=== PATIENT | female | born 1955 | race Caucasian/White ===

== ENCOUNTER 2021-12-14 11:10 | Outpatient (REF) | payer BC, SELFPAY ==
--- NOTE | ~2021-12-14 | MM_ITS ---
EXAMINATION: BONE DENSITOMETRY CLINICAL INDICATION: Asymptomatic menopausal state. COMPARISON: Baseline BD dated 11/18/2018. TECHNIQUE: Using a [employer] DXA System (software version: 13.1) manufactured by [employer], dual-energy x-ray absorptiometry was performed of the lumbar spine and left hip. The images are of good technical quality. Summary results are attached. FINDINGS: AP SPINE L1-L4: Current: BMD 0.897 g/cm2, Z-score -0.2, T-score -2.4, osteopenia, 8.3% decrease from baseline (<5% change is not significant). Baseline: BMD 0.978 g/cm2. LEFT FEMUR, NECK: Current: BMD 0.819 g/cm2, Z-score 0.4, T-score -1.6, osteopenia. Baseline: BMD 0.860 g/cm2. LEFT FEMUR, TOTAL: Current: BMD 0.782 g/cm2, Z-score 0.0, T-score -1.8, osteopenia, 9.0% decrease from baseline (<5% change is not significant). Baseline: BMD 0.859 g/cm2. IDENTIFIED RISK FACTORS: Menopause. HISTORY OF FRACTURE: None listed. MEDICATIONS: Vitamin D. MM/XR DEXA axial skeleton IMPRESSION: 1. DIAGNOSIS: Osteopenia based on the lowest T-score value of -2.4 in the lumbar spine applying World Health Organization criteria. 2. 10-YEAR FRACTURE RISK PREDICTION, FRAX: Major osteoporotic fracture (clinical spine, forearm, hip or shoulder) 8.4%. Hip fracture 1.3%. 3. Treatment Recommendations: NOF guidelines recommend consideration for treatment in postmenopausal women and men age 50 and older presenting with the following: -A hip or vertebral (clinical or morphometric) fracture. -T-score less than or equal to -2.5 at the femoral neck or spine after appropriate evaluation to exclude secondary causes. -Low bone mass at the hip or spine and a 10-year fracture probability by FRAX of greater than or equal to 3% for hip fracture or greater than or equal to 20% for major osteoporotic fracture based on the [place] adapted WHO algorithm. 4. Other Recommendations: All treatment decisions require clinical judgment and consideration of individual patient factors, including patient preferences, comorbidities, previous drug use, risk factors not captured in the FRAX model (e.g. frailty, falls, vitamin D deficiency, increased bone turnover, interval significant decline in bone density) and possible under or overestimation of fracture risk by FRAX. Additional medical evaluation for secondary cause of low bone mineral density may be appropriate. FUTURE SCAN RECOMMENDATION: People with diagnosed cases of osteoporosis or at high risk for fracture should have regular bone mineral density tests. For patients eligible for Medicare, routine testing is allowed once every 2 years. The testing frequency can be increased to one year for patients who have rapidly progressing disease, those who are receiving or discontinuing medical therapy to restore bone mass, or have additional risk factors.
== END 2021-12-14 11:11 | disposition home or self-care (01) ==
LOC: HO.MAMMO 11:10
PROVIDERS: PCP Internal Medicine; Visit Provider Internal Medicine
DX: Z13.820 Encounter for screening for osteoporosis (principal); M85.80 Other specified disorders of bone density and structure, unspecified site; Z78.0 Asymptomatic menopausal state; Z79.899 Other long term (current) drug therapy
CPT/HCPCS: 77080

== ENCOUNTER 2022-04-01 10:26 | Outpatient (REF) | payer BC, SELFPAY ==
--- NOTE | ~2022-04-01 | MM_ITS ---
EXAMINATION: MM SCREENING DIGITAL BREAST TOMOSYNTHESIS, BILATERAL CLINICAL INFORMATION: Screening. Asymptomatic. The lifetime risk of breast cancer based on the Tyrer-Cuzick Model is 4%. COMPARISON: Mammography: 11/18/2018; outside mammography 01/06/2017 ([facility]). TECHNIQUE: Digital breast tomosynthesis is performed in both the craniocaudal and mediolateral oblique views along with computer-aided detection (CAD). Synthesized 2D images are generated from the tomosynthesis. FINDINGS: There are scattered areas of fibroglandular density (ACR BI-RADS breast composition Category b). There are no significant masses, abnormal calcifications, or other abnormalities. There are stable tightly grouped benign round calcifications likely dermal 8:00 left breast. The axilla and skin contours are unremarkable. MM/MM tomosynthesis screening BI IMPRESSION: No mammographic evidence of malignancy. ASSESSMENT: BI-RADS 2: Benign RECOMMENDATION: Routine annual mammography screening. This patient's information was entered into a reminder system with a target due date for their next mammogram.
[2022-04-01 12:26] LABS: Alanine Aminotransferase 14 U/L (0-31); Alkaline Phosphatase 80 U/L (39-117); Amylase 66 U/L (28-100); Anion Gap 11 (12-20); Aspartate Amino Transferase 14 U/L (5-31); Bilirubin Total 0.6 mg/dL (0.0-1.0); Blood Urea Nitrogen 8 mg/dL (9-16); Calcium 9.2 mg/dL (8.4-10.2); Carbon Dioxide 27 mmol/L (22-29); Chloride 105 mmol/L (96-108); Cholesterol 212 mg/dL; Estimated Glomerular Filt Rate > 60; Glucose Fasting 90 mg/dL (60-99); HDL Cholesterol 57 mg/dL; LDL Cholesterol Calculated 143 mg/dl; Lipase 41 U/L (8-78); Potassium 3.9 mmol/L (3.3-5.1); Sodium 139 mmol/L (135-145); Total Protein 6.1 g/dL (6.5-8.0); Triglycerides 63 mg/dL
[2022-04-01 12:46] LABS: Vitamin D 25-OH Total 26.2 ng/mL (>30)
[2022-04-01 12:50] LABS: Erythrocyte Sedimentation Rate 8 MM/HR (0-20)
== END 2022-04-01 10:27 | disposition home or self-care (01) ==
LOC: HO.MAMMO 10:26
PROVIDERS: PCP Internal Medicine; Visit Provider Internal Medicine
DX: Z00.00 Encounter for general adult medical examination without abnormal findings (principal); Z12.31 Encounter for screening mammogram for malignant neoplasm of breast; R10.9 Unspecified abdominal pain; E55.9 Vitamin D deficiency, unspecified; M85.80 Other specified disorders of bone density and structure, unspecified site
CPT/HCPCS: 36415; 77063; 77067; 80053; 80061; 82150; 82306; 83690; 85652; 86140

== ENCOUNTER 2023-05-15 10:37 | Outpatient (REF) | payer BC, SELFPAY ==
--- NOTE | ~2023-05-15 | MM_ITS ---
EXAMINATION: MM SCREENING DIGITAL BREAST TOMOSYNTHESIS, BILATERAL CLINICAL INFORMATION: Screening. Asymptomatic. The lifetime risk of breast cancer based on the Tyrer-Cuzick Model is 4.9%. COMPARISON: Mammography: This study is compared with prior exams dating back to 2017. TECHNIQUE: Digital breast tomosynthesis is performed in both the craniocaudal and mediolateral oblique views along with computer-aided detection (CAD). Synthesized 2D images are generated from the tomosynthesis. FINDINGS: There are scattered areas of fibroglandular density (ACR BI-RADS breast composition Category b). There are no significant masses, abnormal calcifications, or other abnormalities. MM/MM tomosynthesis screening BI IMPRESSION: No mammographic evidence of malignancy. ASSESSMENT: BI-RADS BI-RADS 1 - Negative RECOMMENDATION: Routine annual mammography screening. 1 year F/U This examination should not preclude the clinical evaluation of a suspicious palpable abnormality. This patient's information was entered into a reminder system with a target due date for their next mammogram.
[2023-05-19 12:52] LABS: Immunoglobulin A 141 mg/dL (70-320)
[2023-05-20 14:28] LABS: Endomysial IgA Antibody Negative (Negative)
[2023-05-21 05:43] LABS: Transglutaminase Ab IgG <1.0 U/mL
== END 2023-05-15 10:38 | disposition home or self-care (01) ==
LOC: HO.MAMMO 10:37
PROVIDERS: PCP Internal Medicine; Visit Provider Internal Medicine
DX: Z00.00 Encounter for general adult medical examination without abnormal findings (principal); Z12.31 Encounter for screening mammogram for malignant neoplasm of breast; R10.9 Unspecified abdominal pain; D64.9 Anemia, unspecified; E55.9 Vitamin D deficiency, unspecified; E78.5 Hyperlipidemia, unspecified
CPT/HCPCS: 36415; 77063; 77067; 80053; 80061; 82306; 82784; 85025; 86231; 86364

== ENCOUNTER → 2023-05-15 11:30 | Outpatient (BNV) | payer BC, SELFPAY | PROVIDERS: PCP Internal Medicine; Visit Provider Radiology Diagnostic Radiology | DX: Z12.31 Encounter for screening mammogram for malignant neoplasm of breast (principal) | CPT/HCPCS: 77063; 77067 ==

== ENCOUNTER 2023-05-29 15:50 | Outpatient (REF) | payer BC, SELFPAY ==
[2023-05-29 17:37] LABS: Iron 61 mcg/dL (30-160); Percent Iron Saturation 21 % (15-50); Total Iron Binding Capacity 295 mcg/dL (228-428); Unsaturated Iron Binding 234 ug/dL
[2023-05-29 17:56] LABS: Erythrocyte Sedimentation Rate 7 MM/HR (0-20)
[2023-06-04 12:34] LABS: CRP High Sensitivity 1.5 mg/L
== END 2023-05-29 15:51 | disposition home or self-care (01) ==
LOC: HO.LAB 15:50
PROVIDERS: PCP Internal Medicine; Visit Provider Internal Medicine
DX: D64.9 Anemia, unspecified (principal); R60.9 Edema, unspecified
CPT/HCPCS: 36415; 83540; 85652; 86141

== ENCOUNTER 2024-02-18 10:12 | Outpatient (AMB) | payer BC, SELFPAY ==
[2024-02-18 10:15] VITALS: BP 118/78; BMI 19.0
--- NOTE | 2024-02-18 10:15 | A.OFFPC_ITS ---
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 by: Self / Same As Patient Allergies No Known Allergies Allergy (Verified 02/18/24 10:30) Medication List - Last Reconciled 02/18/24 by Razia Bean MD bimatoprost 0.03% drps ophthalmic (eye) brinzolamide-brimonidine 1-0.2 % (Simbrinza) 1 drp ophthalmic (eye) TID cholecalciferol (vitamin D3) 25 mcg PO DAILY 90 days [compression stockings As directed] [compression stockings As directed] digestive enzymes 1 cap PO DAILY psyllium husk (Metamucil) 1 tbsp PO DAILY [transfer tub bench As directed] Tobacco use date assessed: 02/18/24 Fall risk assessment: No Falls in past year Last assessed Fall Risk: 02/18/24 Dental Screening Dental Screen Date: 02/18/24 Did you have a dental visit in the last 12 months?: Yes Did you have a dental problem in the last 6 months where you did not have access to dental care?: No Was dental information given to patient?: Patient has dentist HPI HPI Comments History of Present Illness Details This is a 69-year-old female that comes for her physical exam. Last mammogram was May 2023 and was normal. Last bone density was 2021 and this will be repeated. Last colonoscopy was November 2022 showing polyps and next colonoscopy should be 2027. Complains of occasional chest pain on exertion and shortness of breath when climbing stairs. No leg swelling. No change in weight. [facility] Medical History Venous insufficiency Abdominal pain Screen for colon cancer Physical exam Osteopenia Postmenopausal Hip pain, right Leg edema Surgical History Status post hip replacement Family History Mother Vascular dementia Glaucoma Father Pancreatic cancer Social History Housing: House Alcohol intake: current Alcohol intake frequency: holidays/special occasions only Alcohol type: wine Patient Tobacco Use Status: Never used Tobacco e-Cigarette/Vaping Use: Never Used Second Hand Smoke Exposure: No service: No Current occupational status: retired Cognitive needs: No Hearing needs: No Vision needs: Yes Questionnaire PHQ-9 Over the last 2 weeks, how often have you been bothered by any of the following problems? 1. Little interest or pleasure in doing things: not at all 2. Feeling down, depressed, or hopeless: not at all 3. Trouble falling or staying asleep, or sleeping too much: not at all 4. Feeling tired or having little energy: not at all 5. Poor appetite or overeating: not at all 6. Feeling bad about yourself - or that you are a failure or have let yourself or your family down: not at all 7. Trouble concentrating on things, such as reading the newspaper or watching television: not at all 8. Moving or speaking so slowly that other people could have noticed. Or the opposite - being so fidgety or restless that you have been moving around a lot more than usual: not at all 9. Thoughts that you would be better off or of hurting yourself in some way: not at all Total score: 0 Depression Screening Interpretation: Negative Depression Screening Done: Yes 63245 - PHQ-9 Billing: Yes Source: Developed by Drs. Arnold Smith, Vicky Barrios, Prieto Melgoza and colleagues, with an educational jonathon from [employer]. Thrive Questionnaire Date Thrive assessed: 02/18/24 I am a: Patient What is your living situation today?: I have a steady place to live Within the past 12 months, did the food you bought not last and you didn't have the money to get more?: Never true Within the past 12 months, did you worry whether your food would run out before you got money to buy more?: Never true Do you have trouble paying for medicines?: No Do you have trouble getting transportation to medical appointments?: No Do you have trouble paying your heating and electricity bill?: No Do you have trouble taking care of your child, family member or friend?: No Do you have trouble with day-to-day activities such as bathing, preparing meals, shopping, managing finances, etc.?: No Are you currently unemployed and looking for a job?: No Are you interested in more education?: No Please select the resources that you would like help with: None Currently or been in a relationship where the following occur: no concerns reported THRIVE Score: 0 AUDIT C Alcohol Use Questionnaire (AUDIT-C) 1. How often do you have a drink containing alcohol?: Monthly or less 2. How many drinks containing alcohol do you have on a typical day when you are drinking?: 1 or 2 3. How often do you have six or more drinks on one occasion?: Never Total Score: 1 VINH-7 AMB Questionnaire VINH-7 Date VINH - 7 assessed: 02/18/24 Feeling nervous, anxious, or on edge: 0 = Not at all Not being able to stop or control worryin = Not at all Worrying too much about different things: 0 = Not at all Trouble relaxin = Not at all Being so restless that it is hard to sit still: 0 = Not at all Becoming easily annoyed or irritable: 0 = Not at all Feeling afraid as if something awful might happen: 0 = Not at all Total VINH-7 score (0-4 normal; 5-9 mild; 10-14 moderate; 15-21 severe): 0 Source: Developed by Drs. Arnold Smith, Vicky Barrios, Prieto Melgoza and colleagues, with an educational jonathon from [employer]. VINH-7 Assessment Billing VINH-7 Assessment Tool: VINH-7 Assessment 59993 Review of Systems Const All systems reviewed & are unremarkable except as noted in HPI and below Eyes Reports no additional complaints, Denies change in vision and Denies other visual disturbances Card Denies chest pain at rest, Reports chest pain with activity, Denies edema, Denies irregular heart rhythm, Denies claudication, Denies dyspnea, Reports dyspnea on exertion, Denies orthopnea, Denies paroxysmal nocturnal dyspnea and Denies slow heart rate Resp Denies cough, Denies dyspnea and Reports dyspnea on exertion GI Denies abdominal pain, Denies change in bowel habits, Denies excessive flatus, Denies nausea and Denies vomiting Neuro Denies behavioral changes, Denies confusion and Denies lack of coordination Psych Denies behavioral changes and Denies confusion Physical exam (Primary Care) Vital Signs: Last Vital Signs BP 118/78 02/18/24 10:15 BMI result Body Mass Index 19.0 Tobacco/Smoking Status: Tobacco use Status Tobacco use date assessed 02/18/24 02/18/24 10:23 Patient Tobacco Use Status Never used Tobacco 02/18/24 10:23 e-Cigarette/Vaping Use Never Used 02/18/24 10:23 PHQ-9: PHQ-9 Score PHQ-9: Total score 0 02/18/24 10:35 Depression Screening Interpretation: Negative Thrive Assessment: Date of Thrive Assessment Date Thrive assessed 02/18/24 02/18/24 10:23 Currently or been in a relationship where the following occur: no concerns reported Const General: No confusion Orientation/consciousness: patient oriented x3 and No confusion Eyes General: appearance normal, both eyes and all related structures Eyelids: Yes eyelids normal Conjunctivae: conjunctivae normal Neck Neck: Yes normal visual inspection and Yes supple Resp Effort & Inspection: normal respiratory effort Auscultation: clear to auscultation bilaterally Cardio Jugular venous distension: no JVD Rate: regular rate Rhythm: regular rhythm Heart sounds: S1 normal heart sound present and S2 normal heart sound present GI Inspection: Yes normal to inspection Palpation (GI): Soft to palpation and nontender Auscultation: normal bowel sounds Skin General skin exam: no rashes or lesions noted Neuro General: patient oriented x3, no focal motor deficits and No confusion Extrem General: Yes full ROM Psych Appearance: grossly normal Assessment and Plan Assessment & Plan (1) Physical exam: Code(s): Z00.00 - Encounter for general adult medical examination without abnormal findings Plan: Repeat in a year. Orders: Orders Comprehensive Warden. Panel Fast Today Z00.00 - Encounter for general adult medical examination without abnormal findings ECG 12 lead EKG Today R07.9 - Chest pain, unspecified CA echo transthoracic complete Today R01.1 - Cardiac murmur, unspecified XR DEXA axial skeleton Today N95.9 - Unspecified menopausal and perimenopausal disorder Lipid Panel Today Z00.00 - Encounter for general adult medical examination without abnormal findings Complete Blood Count Auto Diff Today R10.9 - Unspecified abdominal pain Coding Level of Care Code Est Pt Prev Care >65y(08342) Diagnoses Physical exam Z00.00 Additional Codes VINH-7 Assessment Billing - VINH-7 Assessment Tool: VINH-7 Assessment [id number] ([id number]) Time Spent (min) 33
== END 2024-02-18 10:52 | disposition home or self-care (01) ==
PROVIDERS: Visit Provider Internal Medicine
DX: Z00.00 Encounter for general adult medical examination without abnormal findings (principal)
CPT/HCPCS: 99397

== ENCOUNTER 2024-02-18 11:00 | Outpatient (REF) | payer BC, SELFPAY ==
--- NOTE | 2024-02-18 11:08 | ECG_ITS ---
Test Reason : chest pain Blood Pressure : / mmHG Vent. Rate : 052 BPM Atrial Rate : 052 BPM P-R Int : 222 ms QRS Dur : 082 ms QT Int : 476 ms P-R-T Axes : 068 032 070 degrees QTc Int : 442 ms Sinus bradycardia with 1st degree A-V block Possible Left atrial enlargement Anteroseptal infarct , age undetermined Abnormal ECG No previous ECGs available Referred By: aRzia Bean Electronically Signed By:Abhishek Montoya
[2024-02-18 11:25] LABS: MANUAL DIFF FLAG NO
[2024-02-18 12:49] LABS: Basophils Absolute Auto 0.1 X10*3/uL (0.0-0.2); Basophils Percent Auto 1.7 % (0-2); Eosinophils Absolute Auto 0.1 X10*3/uL (0.0-0.4); Eosinophils Percent Auto 2.2 % (0-4); Hematocrit 39.9 % (37.0-47.0); Hemoglobin 12.8 g/dl (12.0-16.0); Imm Gran Abs Auto 0.01 X10*3/uL (0.00-0.03); Imm Gran Pct Auto 0.2 % (0.0-0.4); Lymphocytes Absolute Auto 1.5 X10*3/uL (1.2-4.9); Lymphocytes Percent Auto 37.3 % (20-40); Mean Corpuscular HGB Conc 32.1 g/dl (31.0-35.0); Mean Corpuscular Hemoglobin 28.9 pg (27.0-33.0); Mean Corpuscular Volume 90.1 fL (80.0-98.0); Mean Platelet Volume 12.8 fL (9.4-12.3); Monocytes Absolute Auto 0.4 X10*3/uL (0.1-1.2); Monocytes Percent Auto 9.1 % (2-11); Neutrophils Percent Auto 49.5 % (45-73); Platelet Count 161 X10*3/uL (160-400); Red Blood Count 4.43 X10*6/uL (4.20-5.50); Red Cell Distribution Width 13.5 % (11.0-16.0); White Blood Count 4.1 X10*3/uL (4.8-10.8)
[2024-02-18 13:25] LABS: Alanine Aminotransferase 15 U/L (0-31); Albumin Level 4.2 g/dL (3.5-5.0); Alkaline Phosphatase 88 U/L (39-117); Anion Gap 13 (12-20); Aspartate Amino Transferase 18 U/L (5-31); Bilirubin Total 0.9 mg/dL (0.0-1.0); Blood Urea Nitrogen 8 mg/dL (9-16); Calcium 9.1 mg/dL (8.4-10.2); Carbon Dioxide 27 mmol/L (22-29); Chloride 103 mmol/L (96-108); Cholesterol 215 mg/dL (<200); Estimated Glomerular Filt Rate > 60; Glucose Fasting 82 mg/dL (60-99); HDL Cholesterol 64 mg/dL (>40); LDL Cholesterol Calculated 139 mg/dL (<100); Potassium 3.6 mmol/L (3.3-5.1); Sodium 139 mmol/L (135-145); Total Protein 6.7 g/dL (6.5-8.0); Triglycerides 62 mg/dL (<150)
== END 2024-02-18 11:01 | disposition home or self-care (01) ==
LOC: HO.LAB 11:00
PROVIDERS: Visit Provider Internal Medicine
DX: Z00.00 Encounter for general adult medical examination without abnormal findings (principal); R10.9 Unspecified abdominal pain; R07.9 Chest pain, unspecified
CPT/HCPCS: 36415; 80053; 80061; 85025; 93005

== ENCOUNTER → 2024-02-18 11:08 | Outpatient (BNV) | payer BC, SELFPAY | PROVIDERS: Visit Provider Internal Medicine Cardiovascular Disease | DX: R94.31 Abnormal electrocardiogram [ECG] [EKG] (principal) | CPT/HCPCS: 93010 ==

== ENCOUNTER → 2024-03-03 08:13 | Outpatient (REF) | payer BC, SELFPAY ==
--- NOTE | 2024-03-03 08:17 | CA_ITS ---
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 Normal LV systolic function with LV EF of 60-65% with grade 1 diastolic dysfunction 2. Trace aortic regurgitation 3. Normal RV systolic pressure 4. No gross pericardial effusion Findings Left Ventricle Normal left ventricular size, thickness, and systolic function. The visually estimated ejection fraction is between 60-65%. Spectral Doppler is indicative of an impaired relaxation filling pattern. E/E prime ratio is <8, consistent with normal filling pressures. Evidence suggests grade I (mild) diastolic dysfunction. Peak GLS is -19.5%, within normal limits. Right Ventricle Normal right ventricular cavity size and systolic function. Atria Both atria are normal in size. There is no evidence of interatrial shunt. Aortic Valve There is mild calcification of the aortic valve. There is mild thickening of the aortic valve. There is no aortic valve stenosis. There is trace (trivial) aortic valve regurgitation. Mitral Valve There is mild anterior mitral leaflet thickening. There is mild mitral annular calcification. There is trace mitral valve regurgitation. There is no mitral valve stenosis. Pulmonic Valve The pulmonic valve is likely normal. There is trace pulmonic valve regurgitation. Tricuspid Valve Normal tricuspid valve structure. There is mild tricuspid valve regurgitation. The right ventricular systolic pressure is normal. The right ventricular systolic pressure is 21 mmHg. Normal right atrial pressure. There is no evidence of pulmonary hypertension. Great Vessels All visible segments of the aorta are normal in size. The pulmonary artery was not well visualized. Venous The inferior vena cava is normal in size and collapses greater than 50% with inspiration. Pericardium/Pleural There is no evidence of pericardial effusion. Prior Study Comparison No prior study available for comparison. Measurements 2D Linear Measurements IVSd: 0.80 0.6-0.9/0.6-1.0 cm LVIDd: 3.73 3.9-5.3/4.2-5.9 cm LVIDd Index: 2.52 2.4-3.2/2.2-3.1 cm/m2 LVIDs: 2.43 2.0-3.6 cm LVPWd: 0.73 0.7-1.1 cm LA Diam: 3.00 2.7-3.8/3.0-4.0 cm LAIDs Index: 2.03 1.5-2.3 cm/m2 LV Mass: 97.12 67-162/88-224 g LV Mass Index: 65.62 43-95/49-115 g/m2 LVOT Diam: 2.00 3.0+(-)1.3 cm 2D Systolic Function EF 4C: 57.20 >55% EF 2C: 66.50 >55% EF BiP: 63.00 >55% Mitral Valve MV Pk E: 0.61 MV PK A: 0.62 MV Decel Time: 241.00 E/A: 1.00 E'Lateral: 8.16 E'Medial: 6.64 E/E' Med: 9.20 E/E' Lat: 7.50 PHT: 70.00 MVA PHT: 3.14 Decel [place]: 2.53 Aortic Valve AoV Pk Stephan: 1.16 AoV Mn Stephan: 0.86 AoV VTI: 0.26 AoV Pk Grad: 5.00 Aov Mn Grad: 3.00 TOM Cont.VTI: 2.51 LVOT LVOT Pk Stephan: 0.92 LVOT Mn Stephan: 0.63 LVOT VTI: 0.21 LVOT Pk Grad: 3.00 LVOT Mn Grad: 2.00 LVOT Diam: 2.00 LVOT Area: 3.14 Diastolic Function MV Pk E: 0.61 MV Pk A: 0.62 E/A: 1.00 E'Medial: 6.64 E/E' Med: 9.20 E' Laterial: 8.16 E/E' Lat: 7.50 Right Ventricle TAPSE (mm): 26.90 TVS' Stephan: 12.00 Tricuspid Valve TR Pk Stephan: 2.13 TR Pk Grad: 18.00 RA Press: 3.00 RVSP: 21.00 Great Vessels Aorta Sinus of Valsalva: 3.12 2.0-3.[address] [place]: 2.38 1.7-3.4 cm Ao Asc: 3.20 2.1-3.4 cm Updated in Other Vendor System with Status of Final Vincent Garcia MD electronically signed on 03/04/2024 4:11:55 PM with status of Final
== END ==
LOC: HO.CARD 08:13
PROVIDERS: Visit Provider Internal Medicine
DX: R01.1 Cardiac murmur, unspecified (principal)
CPT/HCPCS: 93306; 93356

== ENCOUNTER → 2024-03-03 08:17 | Outpatient (BNV) | payer BC, SELFPAY | PROVIDERS: Visit Provider Internal Medicine Cardiovascular Disease | DX: R01.1 Cardiac murmur, unspecified (principal) | CPT/HCPCS: 93306; 93356 ==

== ENCOUNTER 2024-04-21 08:38 | Outpatient (AMB) | payer BC, SELFPAY ==
--- NOTE | 2024-04-21 08:41 | A.OFFVIS_ITS ---
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 Intake Note: New patient Pre-op clearance for left total hip replacement with abnormal echo with ekg today c/o sob, little chest pain with activity, and some leg swelling Patient Resource Coordinator Required: No Allergies No Known Allergies Allergy (Verified 02/18/24 10:30) Medication List - Last Reconciled 04/21/24 by Vincent Garcia MD bimatoprost 0.03% drps ophthalmic (eye) brinzolamide-brimonidine 1-0.2 % (Simbrinza) 1 drp ophthalmic (eye) TID cholecalciferol (vitamin D3) 25 mcg PO DAILY 90 days [compression stockings As directed] [compression stockings As directed] [transfer tub bench As directed] HPI Comments Details: Rose was referred here for preoperative cardiovascular risk stratification prior to her left hip replacement in [place]. She had hip surgery done 2 years ago and tolerated the valve. Recently she had an echocardiogram for murmur but this was suggestive of trace aortic regurgitation which is significant and normal LV ejection fraction with grade 1 diastolic dysfunction. She is very concerned about this finding on the echocardiogram as she was told that this was abnormal. We discussed about the findings and told that these are not significant. However she is experiencing exertional shortness of breath climbing a flight of stairs. She is concerned about it. No family history for premature coronary artery disease but she says she has high cholesterol but also has high HDL. She has never had any vascular events in the past. FOR[facility]LY [facility] Medical History Venous insufficiency Abdominal pain Screen for colon cancer Physical exam Osteopenia Postmenopausal Hip pain, right Leg edema Surgical History Status post hip replacement Family History (Updated 04/21/24 @ 08:52 by Harriet Flores Hollie) Mother Vascular dementia Glaucoma Father Pancreatic cancer LBBB (left bundle branch block) Social History Housing: House Alcohol intake: current Alcohol intake frequency: holidays/special occasions only Alcohol type: wine Patient Tobacco Use Status: Never used Tobacco e-Cigarette/Vaping Use: Never Used Second Hand Smoke Exposure: No service: No Current occupational status: retired Cognitive needs: No Hearing needs: No Vision needs: Yes Review of Systems Const Denies chills, Denies daytime sleepiness, Denies fatigue, Denies fever(s), Denies frequent falls, Denies poor appetite, Denies snoring, Denies stops breathing during sleep, Denies weakness, Denies weight gain and Denies weight loss Eyes Denies loss of vision ENT Denies dizziness and Denies hearing loss Card Denies chest pain, Denies claudication, Denies leg edema, Denies lightheadedness, Denies palpitations, Denies dyspnea, Reports dyspnea on exertion and Denies orthopnea Resp Denies cough, Denies excessive phlegm production, Denies dyspnea, Reports dyspnea on exertion, Denies snoring and Denies wheezing GI Denies abdominal pain, Denies hematochezia, Denies change in bowel habits, Denies nausea and Denies vomiting Denies urinary frequency and Denies dysuria Musc Denies arthralgias, Denies muscle weakness, Denies numbness and Denies other (frequent falls) Skin/Breast Denies nail changes and Denies rash Neuro Denies Abnormal speech present, Denies dizziness, Denies frequent falls, Denies loss of vision, Denies memory loss, Denies numbness and Denies weakness Psych Denies depression and Denies memory loss Endo Denies fatigue and Denies palpitations Stephon/Lymph Reports easy bruising and Reports other (anemia) Aller/Immun Denies wheezing Physical Exam Vital Signs: Last Vital Signs Pulse 66 04/21/24 08:45 BP 110/70 04/21/24 08:45 BMI result Body Mass Index 18.7 Const General: cooperative, comfortable, no acute distress, alert, awake, anxious and well groomed Nutritional Appearance: thin Orientation/consciousness: patient oriented x3 Limitations: no limitations HEENT Head: Yes normocephalic and Yes atraumatic Neck Neck: Yes trachea midline, Yes supple and Yes no JVD Resp Effort & Inspection: normal respiratory effort Auscultation: clear to auscultation bilaterally Cardio Jugular venous distension: no JVD Palpation: normal PMI Rate: regular rate Rhythm: regular rhythm Heart sounds: S1 normal heart sound present, S2 normal heart sound present, no click, no gallops and no murmurs GI Auscultation: normal bowel sounds Skin General skin exam: no rashes or lesions noted Neuro General: patient oriented x3 and no focal motor deficits Speech: No Abnormal speech present Extrem General: Yes no clubbing, cyanosis or edema Office Procedures EKG Details: EKG shows normal sinus rhythm with poor R-wave progression with first-degree AV block. 00751-[id number], Complete Assessment & Plan Assessment & Plan (1) Preoperative cardiovascular examination: Code(s): Z01.810 - Encounter for preprocedural cardiovascular examination Category: Medical Plan: Preoperative cardiovascular risk stratification this elderly woman with exertional shortness of breath with reduced exercise capacity most likely related to deconditioning and loss of muscle mass. At this point time I would suggest her to have further risk stratification with a vasodilating myocardial perfusion imaging to assess for myocardial ischemia as a cause of her symptoms and if she has significant ischemia this may increase her risk for surgery. This was discussed with her. Will be scheduled in near future. I again reassured her that her echo findings are not significant at this point time and she should not worry about it. She seem a little bit relieved. She also complains of orthostatic lightheadedness which appears to be due to relative hypovolemia. Advised to increase her fluid intake. I have discussed her if post hip surgery when she is stable she can have a coronary calcium score for further risk stratification for coronary artery disease. She will consider it. Will follow up in the clinic if need be. Thank you for allowing me to partake in the care Orders: Orders CA lexiscan stress w janes Today Z01.810 - Encounter for preprocedural cardiovascular examination Coding Level of Care Code New Pt Level 4 (79887) Diagnoses Preoperative cardiovascular examination Z01.810 CPT Codes EKG - CPT: 05702-[id number], Complete ([id number])
[2024-04-21 08:45] VITALS: BP 110/70; PULSE 66; BMI 18.7
== END 2024-04-21 09:16 | disposition home or self-care (01) ==
PROVIDERS: PCP Internal Medicine; Visit Provider Internal Medicine Cardiovascular Disease
DX: I44.0 Atrioventricular block, first degree (principal); Z01.810 Encounter for preprocedural cardiovascular examination
CPT/HCPCS: 93010; 99214

== ENCOUNTER → 2024-04-21 08:38 | Outpatient (BNVA) | payer BC, SELFPAY | PROVIDERS: PCP Internal Medicine; Visit Provider Internal Medicine Cardiovascular Disease | DX: Z01.810 Encounter for preprocedural cardiovascular examination (principal) | CPT/HCPCS: 93005 ==

== ENCOUNTER → 2024-04-29 09:40 | Outpatient (REF) | payer BC, SELFPAY ==
--- NOTE | ~2024-04-29 | NM_ITS ---
Exercise Myocardial perfusion study Indication: Preoperative cardiovascular risk stratification Technique: The patient was brought in for an exercise perfusion study on 04/29/2024. Patient performed exercise as per Jose protocol and was injected 25 mCi of sestamibi was given intravenously one target HR was achieved. Images were obtained using the SPECT gamma camera interlaced with the gating device. Images were obtained in supine position. Resting perfusion study was performed on 04/30/2024. Patient was administered 25 mCi of sestamibi intravenously at rest. Images were then obtained in supine position. Images obtained with and without CT attenuation. Total DLP 67 mGy-cm. Images were processed with the software and compared side to side in short axis, horizontal long axis and vertical long axis views. Findings: The stress perfusion study showed both attenuated as well as non attenuated corrected images show normal uptake of radiotracer in all segments of LV myocardium.. The gated study shows normal LV systolic function with calculated LVEF of 71%. LV cavity is normal in size. The gated study shows normal systolic wall thickening and contraction of all segments. There is no transient ischemic dilation. Resting study shows intense inferolateral uptake from subdiaphragmatic organs. However overall myocardial uptake is within normal limits.. Gating at rest reveals systolic wall motion with estimated ejection fraction at greater than 60%. The findings are consistent with normal myocardial perfusion. NM/NM janes perf SPECT rest & str Impression: 1. Normal myocardial perfusion 2. Gated LVEF is 71% 3. Transient ischemic dilatation not present Stress EKG is negative for ischemia
--- NOTE | 2024-04-29 09:43 | CA_ITS ---
Acquisition Time: 2024-04-29 10:54:24 Total Exercise Time: 00:05:00 Test Indications: Z01.810 - Encounter for preproc Medications: Protocol: CALVIN Max HR: 139 BPM 93% of Pred: 149 BPM Max BP: 148/082 mmHG Max Work Load: 6.1 METS Exercise stress test with exercise 5 min of Calvin protocol, achieving 92% of MPHR, without anginal symptoms, with isolated PACs, with normotensive response to exercise, without EKG changes during exercise. in later recovery there is scooping ST segement noted inferolateral lead which is nonspecific. Nuclear images pending. Test reviewed with Dr Garcia. Note: After IV insertion, minutes later, she had vasovagal event with diaphoresis and lightheadedness. She was placed in supine position and IV fluids run wide open. EKG showed sinus bradycardia with lowest heart rate 38. BP down to 78/40. She was awake and declined atropine. Within minutes her heart rate and BP started to improve. Once able she was placed into sitting position. Heart rate and BP were then stable. She recieved 500cc NS, 6 oz of water PO. She was allowed to rest for 30 min then testing changed to an exercise strress test at her request. Order changed from Lexiscan to exercise. Dr Garcia notified of the above. Referred By: Vincent Garcia Overread By: PANTERA SANTIAGO
== END ==
LOC: HO.CARD 09:40
PROVIDERS: PCP Internal Medicine; Visit Provider Internal Medicine Cardiovascular Disease
DX: Z01.810 Encounter for preprocedural cardiovascular examination (principal)
CPT/HCPCS: 78452; 93017; A9500; J0280; J2785

== ENCOUNTER → 2024-04-29 09:43 | Outpatient (BNV) | payer BC, SELFPAY | PROVIDERS: PCP Internal Medicine; Visit Provider Nurse Practitioner Family | DX: Z01.810 Encounter for preprocedural cardiovascular examination (principal) | CPT/HCPCS: 78452; 93016; 93018 ==

== ENCOUNTER 2024-07-14 13:55 | Outpatient (REF) | payer BC, SELFPAY ==
--- NOTE | ~2024-07-14 | MM_ITS ---
EXAMINATION: BONE DENSITOMETRY CLINICAL INDICATION: Menopause. COMPARISON: Previous BD dated 12/14/2021 and baseline BD dated 11/18/2018. TECHNIQUE: Using a Index DXA System (software version: 13.1) manufactured by [employer], dual-energy x-ray absorptiometry was performed of the lumbar spine and left forearm radius 33%. The images are of good technical quality. Summary results are attached. Status post bilateral hip arthroplasty. FINDINGS: AP SPINE L1-L4: Current: BMD 0.930 g/cm2, Z-score 0.1, T-score -2.1, osteopenia, 3.7% increase from previous, 4.9% decrease from baseline (<5% change is not significant). Prior: BMD 0.897 g/cm2. Baseline: BMD 0.978 g/cm2. LEFT FOREARM RADIUS 33%: BMD 0.575 g/cm2, Z-score -1.5, T-score -3.4, osteoporosis. IDENTIFIED RISK FACTORS: Menopause, osteoporosis. HISTORY OF FRACTURE: None listed. MEDICATIONS: Vitamin D. MM/XR DEXA appendicular skeleton IMPRESSION: 1. DIAGNOSIS: Osteoporosis based on the lowest T-score value of -3.4 in the forearm radius 33% applying World Health Organization criteria. 2. 10-YEAR FRACTURE RISK PREDICTION, FRAX: According to the guidelines, FRAX calculation should only be performed on patients in the osteopenia bone density category. Therefore, FRAX was not performed on this patient. 3. Treatment Recommendations: NOF guidelines recommend consideration for treatment in postmenopausal women and men age 50 and older presenting with the following: -A hip or vertebral (clinical or morphometric) fracture. -T-score less than or equal to -2.5 at the femoral neck or spine after appropriate evaluation to exclude secondary causes. -Low bone mass at the hip or spine and a 10-year fracture probability by FRAX of greater than or equal to 3% for hip fracture or greater than or equal to 20% for major osteoporotic fracture based on the [place] adapted WHO algorithm. 4. Other Recommendations: All treatment decisions require clinical judgment and consideration of individual patient factors, including patient preferences, comorbidities, previous drug use, risk factors not captured in the FRAX model (e.g. frailty, falls, vitamin D deficiency, increased bone turnover, interval significant decline in bone density) and possible under or overestimation of fracture risk by FRAX. Additional medical evaluation for secondary cause of low bone mineral density may be appropriate. FUTURE SCAN RECOMMENDATION: People with diagnosed cases of osteoporosis or at high risk for fracture should have regular bone mineral density tests. For patients eligible for Medicare, routine testing is allowed once every 2 years. The testing frequency can be increased to one year for patients who have rapidly progressing disease, those who are receiving or discontinuing medical therapy to restore bone mass, or have additional risk factors. Electronically signed by: Joaquim Mendoza MD 07/21/2024 11:48 AM EDT
--- NOTE | ~2024-07-14 | MM_ITS ---
EXAMINATION: MM SCREENING DIGITAL BREAST TOMOSYNTHESIS, BILATERAL CLINICAL INFORMATION: Screening. Asymptomatic. COMPARISON: Mammography: Comparison is made with available priors TECHNIQUE: Digital breast mammography with tomosynthesis is performed in both the craniocaudal and mediolateral oblique views along with computer-aided detection (CAD). FINDINGS: There are scattered areas of fibroglandular density (ACR BI-RADS breast composition Category b). There are no significant masses, abnormal calcifications, or other abnormalities. MM/MM tomosynthesis screening BI IMPRESSION: No mammographic evidence of malignancy. ASSESSMENT: BI-RADS BI-RADS 1 - Negative RECOMMENDATION: Routine annual mammography screening. 1 year F/U This examination should not preclude the clinical evaluation of a suspicious palpable abnormality. This patient's information was entered into a reminder system with a target due date for their next mammogram. Electronically signed by: nAa Wilde DO 08/01/2024 09:36 AM EDT
== END 2024-07-14 13:56 | disposition home or self-care (01) ==
LOC: HO.MAMMO 13:55
PROVIDERS: PCP Internal Medicine; Visit Provider Internal Medicine
DX: Z12.31 Encounter for screening mammogram for malignant neoplasm of breast (principal); Z13.820 Encounter for screening for osteoporosis; Z78.0 Asymptomatic menopausal state
CPT/HCPCS: 77063; 77067; 77081

== ENCOUNTER → 2024-07-14 14:15 | Outpatient (BNV) | payer BC, SELFPAY | PROVIDERS: PCP Internal Medicine; Visit Provider Internal Medicine | DX: Z12.31 Encounter for screening mammogram for malignant neoplasm of breast (principal) | CPT/HCPCS: 77063; 77067 ==

== ENCOUNTER 2024-09-23 12:15 | Outpatient (REF) | payer BC, SELFPAY ==
[2024-09-23 16:31] LABS: Parathyroid Hormone Intact 104.2 pg/mL (8.7-77.1)
[2024-09-23 16:48] LABS: Alanine Aminotransferase 17 U/L (0-31); Albumin Level 4.1 g/dL (3.5-5.0); Alkaline Phosphatase 86 U/L (39-117); Anion Gap 11 (12-20); Aspartate Amino Transferase 24 U/L (5-31); Bilirubin Total 0.4 mg/dL (0.0-1.0); Blood Urea Nitrogen 9 mg/dL (9-16); Calcium 8.9 mg/dL (8.4-10.2); Carbon Dioxide 29 mmol/L (22-29); Chloride 103 mmol/L (96-108); Estimated Glomerular Filt Rate > 60; Glucose Random 85 mg/dL (60-115); Potassium 3.7 mmol/L (3.3-5.1); Sodium 139 mmol/L (135-145); Thyroid Stimulating Hormone 1.61 uIU/mL (0.32-4.0); Total Protein 6.7 g/dL (6.5-8.0)
[2024-09-27 21:43] LABS: Calcium, Ionized 5.1 mg/dL (4.7-5.5)
[2024-09-28 11:28] LABS: Prot Elec - Alpha1 0.4 g/dL (0.2-0.3); Prot Elec - Alpha2 0.7 g/dL (0.5-0.9); Prot Elec - Beta 1 0.4 g/dL (0.4-0.6); Prot Elec - Beta 2 0.4 g/dL (0.2-0.5); Prot Elec - Gamma 0.6 g/dL (0.8-1.7); Prot Elec - Total Protein 6.4 g/dL (6.1-8.1)
[2024-09-29 14:18] LABS: Vitamin D 25-OH, D2 <4 ng/mL; Vitamin D 25-OH, D3 29 ng/mL; Vitamin D 25-OH, Total 29 ng/mL (30-100)
== END 2024-09-23 12:16 | disposition home or self-care (01) ==
LOC: HO.LAB 12:15
PROVIDERS: PCP Internal Medicine; Visit Provider Student in an Organized Health Care Education/Training Program
DX: M81.6 Localized osteoporosis [Lequesne] (principal)
CPT/HCPCS: 36415; 80053; 82306; 82330; 83970; 84165; 84443

== ENCOUNTER 2024-09-23 12:15 | Outpatient (AMB) | payer BC, SELFPAY ==
[2024-09-23 12:34] VITALS: BP 100/60; PULSE 64; O2SAT 99; BMI 19.8
--- NOTE | 2024-09-23 12:34 | A.OFFVIS_ITS ---
Vital Signs 09/23/24 12:34 Height 5 ft 3 in Weight 111 lb 12.39 oz BMI 19.8 BP 100/60 Blood Pressure Location Lt brachial Position Sitting Pulse 64 Pulse Source Pulse Oximeter Pulse Oximetry (%) 99 Oxygen Delivery Method Room Air Intake Visit Reasons: osteoporosis Intake Note: Patient presents with osteoporosis, she was internally referred by her PCP, Dr. Alvarado. Allergies No Known Allergies Allergy (Verified 09/23/24 12:37) Medication List - Last Reconciled 09/23/24 by Irlanda Silver MD bimatoprost 0.03% drps ophthalmic (eye) brinzolamide-brimonidine 1-0.2 % (Simbrinza) 1 drp ophthalmic (eye) TID cholecalciferol (vitamin D3) 25 mcg PO DAILY 90 days [compression stockings As directed] [compression stockings As directed] [transfer tub bench As directed] HPI Comments Details: Patient is a 69-year-old female with bilateral hip OA s/p replacement who presents for evaluation of low bone density Risk Factor Assessment: ? Age: 69 years ? Race: ? Menarche: 11 years - 50 years ? Family history including hip fracture: No known family history of osteoporosis ? Low calcium/vitamin-D intake: Vit D supplements. Doesn't take Ca supplements but tries to eat foods high in calcium ? Estrogen deficiency: None ? Sedentary lifestyle: Walks and is active ? Cigarette smoking: Never smoked ? Excessive alcohol: Socially ? Excessive caffeine: Does not drink coffee, occasional tea High-risk medication assessment: No high risk meds PFSH Medical History Venous insufficiency Abdominal pain Screen for colon cancer Physical exam Osteopenia Postmenopausal Hip pain, right Leg edema Surgical History Status post hip replacement Family History (Updated 04/21/24 @ 08:52 by Harriet Flores Hollie) Mother Vascular dementia Glaucoma Father Pancreatic cancer LBBB (left bundle branch block) Social History Housing: House Alcohol intake: current Alcohol intake frequency: holidays/special occasions only Alcohol type: wine Patient Tobacco Use Status: Never used Tobacco e-Cigarette/Vaping Use: Never Used Second Hand Smoke Exposure: No service: No Current occupational status: retired Cognitive needs: No Hearing needs: No Vision needs: Yes Review of Systems Const Details: Review of Systems Constitutional: Denies fever, chills, weight loss ENT: Denies vision changes, eye pain or eye redness, dental caries, dry mouth GI: Denies nausea, vomiting, diarrhea, abdominal pain, change in BM Pulm: Denies SOB, ANTONIO, hemoptysis, wheezing Cards: Denies chest pain, palpitations Skin: Denies Raynaud's, rash, nail changes, photosensitivity, TALENT DEVELOPMENT COORDINATOR: Denies headaches, weakness, paresthesias, recurrent falls MSK: as per HPI All other systems reviewed and are unremarkable except noted above Physical Exam Vital Signs: Last Vital Signs Pulse 64 09/23/24 12:34 BP 100/60 09/23/24 12:34 Pulse Ox 99 09/23/24 12:34 Oxygen Delivery Method Room Air 09/23/24 12:34 BMI result Body Mass Index 19.8 Physical Examination CONSTITUITIONAL Patient alert and cooperative. Well appearing and in no apparent painful distress HEENT Conjunctiva and sclera clear. ?Pupils equal round and reactive to light. ?No lymphadenopathy. ?Normal dentition. No oral or nasal ulcers noted. No evidence of discoid rash to the debbie of ears CHEST/RESPIRATORY SYSTEM Normal respiratory effort and able to speak in complete sentences. ?Clear to auscultation bilaterally. ?No crackles, rales, rhonchi, wheezes heard. CARDIAC SYSTEM Regular rate and rhythm. ?S1 and S2 heard no murmurs. ?Radial pulses intact bilaterally MSK Hands: ?Good property underwriter strength bilaterally - 5/5. Scattered Heberden's nodes noted. Prominent 1st and 2nd MCP of bilateral hands. ?No synovitis noted to the MCPs, PIPs or DIPs. ?No tenderness to palpation of these joints. Wrists: ?Full range of motion at the wrists without pain. ?No tenderness to palpation or synovitis noted to the wrists. Elbows: Full range of motion without pain. No tenderness, weakness, swelling, increased warmth or erythema. Shoulders: Full range of motion without pain. No tenderness, weakness, swelling, increased warmth or erythema. Hips: Full range of motion without pain. Hip bursa: No tenderness to palpation Knees: ?Full range of motion. ?No tenderness, swelling, increased warmth or erythema.?No effusion or crepitations Ankles: Full range of motion. ?No tenderness, swelling, increased warmth or erythema.? Feet: ?Negative squeeze test. ?No tenderness to palpation or swelling of the MTPs. Tender points:??No tenderness to palpation of the neck, shoulders, chest, elbows, hips, buttocks or knees. SKIN Skin intact without rashes. Results Reviewed Results Reviewed: DEXA 07/2024. FINDINGS: AP SPINE L1-L4: Current: BMD 0.930 g/cm2, Z-score 0.1, T-score -2.1, osteopenia, 3.7% increase from previous, 4.9% decrease from baseline (<5% change is not significant). Prior: BMD 0.897 g/cm2. Baseline: BMD 0.978 g/cm2. LEFT FOREARM RADIUS 33%: BMD 0.575 g/cm2, Z-score -1.5, T-score -3.4, osteoporosis. Assessment & Plan Assessment & Plan (1) Osteoporosis: Code(s): M81.0 - Age-related osteoporosis without current pathological fracture Category: Medical Qualifiers: Osteoporosis type: localized Presence of current pathological fracture: without current pathological fracture Qualified Code(s): M81.6 - Localized osteoporosis [[place]] Plan: #Osteoporosis of forearm Patient had bone density done in 2021 including the spine and hip which showed osteopenia involving her spine and hip with a low FRAX index. Given that she has bilateral hip replacement appendicular skeleton DEXA was performed. This now showed osteoporosis involving her forearm. The data on forearm osteoporosis is lacking and the endocrinology society recommends shared decision-making with patient and physician since forearm fractures have not been associated with high mortality/morbidity as compared to hip and spinal fractures. With that being said this patient is an active 69-year-old who is taking vitamin-D and monitors her calcium intake. She swims and bicycles. Calculating the FRAX based on her spine gives a risk of major osteoporotic fractures at 13%. Given the wrists associated with bisphosphonate therapy patient has opted to continue with lifestyle modifications including increasing for arm muscle exercises (I gave her a handout with specific exercises). I am in agreement with her decision. I think she is the perfect patient to monitor off of treatment. There is an increased association of isolated forearm osteoporosis and hyperparathyroidism, given this association I will check labs Burt H, Autumn SC, Chase D, Ophelia NA, Erick A, Savi E, Patrice H, Tena S, Edith N, Tanisha Navarro. The significance of forearm bone mineral density evaluation in determining surgical indications in primary hyperparathyroidism. [facility]ol ([place]). 2022;84(1):8-13. doi: [email or web address]. Epub 2021Aug 24. PMID: [id number]. Plan I spent 30 minutes reviewing the record and labs, seeing the patient, discussing the treatment plan and documenting in the medical record ? Orders: Orders Comprehensive Met. Panel Today M81.0 - Age-related osteoporosis without current pathological fracture Thyroid Stimulating Hormone Today M81.0 - Age-related osteoporosis without current pathological fracture Vitamin D 25-OH (D2 and D3) Today M81.0 - Age-related osteoporosis without current pathological fracture Parathyroid Hormone Intact Today M81.0 - Age-related osteoporosis without current pathological fracture Calcium Today M81.0 - Age-related osteoporosis without current pathological fracture Calcium, Ionized Today M81.0 - Age-related osteoporosis without current pathological fracture Protein Electrophoresis, Serum Today M81.0 - Age-related osteoporosis without current pathological fracture Coding Level of Care Code New Pt Level 3 (89792) Diagnoses Localized osteoporosis without current pathological fracture M81.6 Osteoporosis type: localized Presence of current pathological fracture: without current pathological fracture
== END 2024-09-23 13:11 | disposition home or self-care (01) ==
PROVIDERS: PCP Internal Medicine; Visit Provider Student in an Organized Health Care Education/Training Program
DX: M81.6 Localized osteoporosis [Lequesne] (principal)
CPT/HCPCS: 99203

== ENCOUNTER 2024-09-30 15:00 | Outpatient (REF) | payer BC, SELFPAY ==
--- NOTE | ~2024-09-30 | US_ITS ---
EXAMINATION: US THYROID CLINICAL INFORMATION: Primary hyperparathyroidism. COMPARISON: None available. TECHNIQUE: Linear transducer grayscale and color Doppler examination with attention to the region of the thyroid. FINDINGS: Submitted for interpretation on October 15, 2024. SIZE: Measurements of the thyroid lobes and nodules are given in sagittal, anteroposterior and transverse dimensions respectively. Right Thyroid Lobe: 4 x 1 x 1 cm, volume 3 mL. Parenchyma: The gland echotexture is homogeneous. Thyroid vascularity is normal. Left Thyroid Lobe: 4 x 1 x 1 cm, volume 2 mL. Parenchyma: The gland echotexture is homogeneous. Thyroid vascularity is normal. Isthmus: 0.2 cm in maximum AP dimension. No focal thyroid nodule is seen. NODES: No lymphadenopathy is seen in the tissue surrounding the thyroid gland. US/US thyroid IMPRESSION: No dominant nodules. Normal exam. ACR TI-RADS RECOMMENDATION REFERENCE: Ultrasound-guided fine-needle aspiration, followup ultrasound, no further follow up. * TR1 (0 point) and TR2 (2 points): No FNA or follow up. * TR3 (3 points): FNA if more than or equal to 2.5 cm in maximum dimension, followup ultrasound in 1, 3 and 5 years if 1.5 to 2.4 cm in maximum dimension. * TR4 (4-6 points): FNA if more than or equal to 1.5 cm in maximum dimension, followup ultrasound in 1, 2, 3 and 5 years if 1 to 1.4 cm in maximum dimension. * TR5 (more than or equal to 7 points): FNA if more than or equal to 1 cm in maximum dimension, followup ultrasound every year for 5 years if 0.5 to 0.9 cm in maximum dimension. * TR3, TR4 or TR5 nodules that are below the size threshold for followup receive no follow up. Electronically signed by: Socrates Purvis MD 10/15/2024 11:08 AM JEISON
== END 2024-09-30 15:01 | disposition home or self-care (01) ==
LOC: HO.US 15:00
PROVIDERS: PCP Internal Medicine; Visit Provider Student in an Organized Health Care Education/Training Program
DX: E21.0 Primary hyperparathyroidism (principal)
CPT/HCPCS: 76536

== ENCOUNTER → 2024-09-30 15:01 | Outpatient (BNV) | payer BC, SELFPAY | PROVIDERS: PCP Internal Medicine; Visit Provider Radiology Diagnostic Radiology | DX: E21.0 Primary hyperparathyroidism (principal) | CPT/HCPCS: 76536 ==

== ENCOUNTER 2024-11-08 13:23 | Outpatient (AMB) | payer BC, SELFPAY ==
[2024-11-08 13:24] VITALS: BP 138/76; PULSE 77; BMI 20.4
--- NOTE | 2024-11-08 13:24 | MHC.OFFVIS ---
Vital Signs 11/08/24 13:24 Height 5 ft 3 in Weight 115 lb 1.301 oz BMI 20.4 BP 138/76 Blood Pressure Location Rt brachial Position Sitting Pulse 77 Pulse Source Pulse Oximeter Intake Visit Reasons: Primary hyperparathyroidism Intake Note: New patient present today for Primary hyperparathyroidism office visit. Motion Picture Commentator Required: No Accompanied by: Self / Same As Patient Allergies No Known Allergies Allergy (Verified 11/08/24 13:28) Medication List - Last Reconciled 11/08/24 by Angelica Saleh MD bimatoprost 0.03% drps ophthalmic (eye) brinzolamide-brimonidine 1-0.2 % (Simbrinza) 1 drp ophthalmic (eye) TID cholecalciferol (vitamin D3) 25 mcg PO DAILY 90 days [compression stockings As directed] [compression stockings As directed] [transfer tub bench As directed] HPI Comments Details: 69-year-old female here today for initial evaluation of hyperparathyroidism and osteoporosis. Due to B/L hip replacements, BMD of forearm was obtained 07/2024 which showed osteoporosis of forearm with Tscore of -3.4 , osteopenia of the spine -2.1. Labs from 09/23/24 show elevated PTH of 104, normal calcium level of 9.1 with albumin 4.1, normal ionized calcium 5.1 , egfr >60, vitamin D 29. 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 with localized osteoporosis of [place] Fracture History: None Height loss: none Back pain: none Pharmacotherapeutic hx: none Drug holiday none Family history: no family history of osteoporosis No family history of kidney stones Estrogen use: No HRT, OCP for 9 months when she was in her reproductive age Menstrual hx: menopause 50 years , menarche 11 years , irregular periods whole life, 4 pregnancies Secondary risk factors: Steroid use: None Hyperthyroidism: Neg Seizure medication use: None Chemo or Radiation use: Neg Heparin Use: Neg History of eating disorder: Negative 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 History of kidney stones or disease: negative PI Use: Negative Chronic inflammatory lung disease: Negative Chronic inflammatory bowel disease: Negative Daily calcium intake: lactose and gluten intolerance , almond daily a cup every other day, cheese not really, no yogurt Vitamin D intake:1000 units daily, 5 years Exercise:bike and swim, bikes an hour twice a week , lifts 8 lbs weight 3-4 times a week Smoking history: none Dental: Has regular dental cleaning, no issues Denies abd pain, no polyuria , no constipation, no mental status changes/ brain fog / confusion Physical exam General: sitting comfortably in no acute distress HEENT: normocephalic/atraumatic Neck: supple, symmetrical Cardiac: normal heart sounds Pulm: normal breath sounds B/L, no added breath sounds Abd: not distended, no tenderness Extremities: no edema, no signs of myxedema Laboratory Tests 04/01/22 05/15/23 02/18/24 10:51 10:48 11:23 Creatinine Estimated GFR Calcium 9.2 9.4 9.1 Ionized Calcium Alkaline Phosphatase Total Protein Total Protein (PEP) Albumin Albumin (PEP) Uauwv-4-Hrhjjhbol Olwtl-5-Xnwnkhcet Egzb-6-Fkculwce Uxnq-1-Clbxodzp 25-OH Vitamin D Total 25-Hydroxy Vitamin D2 25-Hydroxy Vitamin D3 TSH PTH Intact 09/23/24 13:44 Creatinine 0.67 Estimated GFR > 60 Calcium 8.9 Ionized Calcium 5.1 Alkaline Phosphatase 86 Total Protein 6.7 Total Protein (PEP) 6.4 Albumin 4.1 Albumin (PEP) 4.0 Cdszc-2-Qwwellota 0.4 H Vnxyo-3-Wpuwtabti 0.7 Ljvv-6-Nqozgqbs 0.4 Lrxb-7-Rnkzcfen 0.4 25-OH Vitamin D Total 29 L 25-Hydroxy Vitamin D2 <4 25-Hydroxy Vitamin D3 29 TSH 1.61 PTH Intact 104.2 H BONE DENSITOMETRY 07/14/24 CLINICAL INDICATION: Menopause. COMPARISON: Previous BD dated 12/14/2021 and baseline BD dated 11/18/2018. TECHNIQUE: Using a [employer] DXA System (software version: 13.1) manufactured by [employer], dual-energy x-ray absorptiometry was performed of the lumbar spine and left forearm radius 33%. The images are of good technical quality. Summary results are attached. Status post bilateral hip arthroplasty. FINDINGS: AP SPINE L1-L4: Current: BMD 0.930 g/cm2, Z-score 0.1, T-score -2.1, osteopenia, 3.7% increase from previous, 4.9% decrease from baseline (<5% change is not significant). Prior: BMD 0.897 g/cm2. Baseline: BMD 0.978 g/cm2. LEFT FOREARM RADIUS 33%: BMD 0.575 g/cm2, Z-score -1.5, T-score -3.4, osteoporosis. IDENTIFIED RISK FACTORS: Menopause, osteoporosis. HISTORY OF FRACTURE: None listed. MEDICATIONS: Vitamin D. MM/XR DEXA appendicular skeleton IMPRESSION: 1. DIAGNOSIS: Osteoporosis based on the lowest T-score value of -3.4 in the forearm radius 33% applying World Health Organization criteria. 2. 10-YEAR FRACTURE RISK PREDICTION, FRAX: According to the guidelines, FRAX calculation should only be performed on patients in the osteopenia bone density category. Therefore, FRAX was not performed on this patient. EXAMINATION: BONE DENSITOMETRY 12/14/21 CLINICAL INDICATION: Asymptomatic menopausal state. COMPARISON: Baseline BD dated 11/18/2018. TECHNIQUE: Using a [employer] DXA System (software version: 13.1) manufactured by [employer], dual-energy x-ray absorptiometry was performed of the lumbar spine and left hip. The images are of good technical quality. Summary results are attached. FINDINGS: AP SPINE L1-L4: Current: BMD 0.897 g/cm2, Z-score -0.2, T-score -2.4, osteopenia, 8.3% decrease from baseline (<5% change is not significant). Baseline: BMD 0.978 g/cm2. LEFT FEMUR, NECK: Current: BMD 0.819 g/cm2, Z-score 0.4, T-score -1.6, osteopenia. Baseline: BMD 0.860 g/cm2. LEFT FEMUR, TOTAL: Current: BMD 0.782 g/cm2, Z-score 0.0, T-score -1.8, osteopenia, 9.0% decrease from baseline (<5% change is not significant). Baseline: BMD 0.859 g/cm2. IDENTIFIED RISK FACTORS: Menopause. HISTORY OF FRACTURE: None listed. MEDICATIONS: Vitamin D. MM/XR DEXA axial skeleton IMPRESSION: 1. DIAGNOSIS: Osteopenia based on the lowest T-score value of -2.4 in the lumbar spine applying World Health Organization criteria. 2. 10-YEAR FRACTURE RISK PREDICTION, FRAX: Major osteoporotic fracture (clinical spine, forearm, hip or shoulder) 8.4%. Hip fracture 1.3%. [facility] Medical History (Updated 11/08/24 @ 14:23 by Angelica Saleh MD) Hyperparathyroidism Normocalcemic primary hyperparathyroidism Venous insufficiency Abdominal pain Screen for colon cancer Physical exam Osteopenia Postmenopausal Hip pain, right Leg edema Surgical History Status post hip replacement Family History Mother Vascular dementia Glaucoma Father Pancreatic cancer LBBB (left bundle branch block) Social History Housing: House Alcohol intake: current Alcohol intake frequency: holidays/special occasions only Alcohol type: wine Patient Tobacco Use Status: Never used Tobacco e-Cigarette/Vaping Use: Never Used Second Hand Smoke Exposure: No service: No Current occupational status: retired Cognitive needs: No Hearing needs: No Vision needs: Yes Physical Exam Vital Signs: Last Vital Signs Pulse 77 11/08/24 13:24 BP 138/76 11/08/24 13:24 BMI result Body Mass Index 20.4 Assessment & Plan Assessment & Plan (1) Osteoporosis: Code(s): M81.0 - Age-related osteoporosis without current pathological fracture Category: Medical Qualifiers: Osteoporosis type: localized Presence of current pathological fracture: without current pathological fracture Qualified Code(s): M81.6 - Localized osteoporosis [[place]] Plan: See below (2) Hyperparathyroidism: Code(s): E21.3 - Hyperparathyroidism, unspecified Category: Medical Plan: 69-year-old female here today for elevated PTH level and osteoporosis. Due to B/L hip replacements, BMD of forearm was obtained 07/2024 which showed osteoporosis of forearm with Tscore of -3.4 , osteopenia of the spine -2.1. Labs subsequently from 09/23/24 show elevated PTH of 104, normal calcium level of 9.1 with albumin 4.1, normal ionized calcium 5.1 , egfr >60, vitamin D 29. Given vitamin-D is on the lower side, this could possibly be mild secondary hyperparathyroidism in the setting of vitamin-D deficiency. I have asked her to increase her vitamin-D from a 1000 units daily to 2000 units and we will check her labs in 8 weeks to see if this improvement when she is on a better vitamin-D intake. She also has poor nutritional intake of calcium due to lactose intolerance, I have asked her to increase her calcium intake with other fortified calcium rich foods. We will also check a 24 hour urine calcium level. If her PTH level comes down with improved vitamin-D and calcium intake, this is secondary hyperparathyroidism. If her PTH remains elevated, we are checking 24 hour urine calcium to see if she has a idiopathic hypercalciuria. If all of these are ruled out, then differential would be normocalcemic hyperparathyroidism. In which case given osteoporosis of the forearm she would qualify for surgery. Plan: -increase vitamin-D to 2000 units daily -increase calcium intake to 1000 mg daily in diet -after 8 weeks of doing the above to 24 hour urine calcium and creatinine as well as blood work -ordered bone resorption markers, calcium, albumin, PTH, ionized calcium, vitamin-D level, kidney function, phosphorus and magnesium, 24 hour urine calcium and creatinine -follow up in 10 weeks to discuss results Plan I spent 45 minutes in reviewing the record, seeing the patient and documenting in the medical record. Orders: Orders Alkaline Phosphatase Bone 8 Weeks E21.0 - Primary hyperparathyroidism, M81.6 - Localized osteoporosis [[place]] Collagen Type I C-Telopeptide 8 Weeks E21.0 - Primary hyperparathyroidism, M81.6 - Localized osteoporosis [[place]] Calcium 8 Weeks E21.0 - Primary hyperparathyroidism, M81.6 - Localized osteoporosis [[place]] Calcium, 24 Hr Ur 8 Weeks E21.0 - Primary hyperparathyroidism, M81.6 - Localized osteoporosis [[place]] Phosphorus 8 Weeks E21.0 - Primary hyperparathyroidism, M81.6 - Localized osteoporosis [[place]] Sodium, 24Hr Urine Group 8 Weeks E21.0 - Primary hyperparathyroidism, M81.6 - Localized osteoporosis [[place]] Albumin Level 8 Weeks E21.0 - Primary hyperparathyroidism, M81.6 - Localized osteoporosis [[place]] Calcium, Ionized 8 Weeks E21.0 - Primary hyperparathyroidism, M81.6 - Localized osteoporosis [[place]] Creatinine, 24 Hr Group 8 Weeks E21.0 - Primary hyperparathyroidism, M81.6 - Localized osteoporosis [[place]] Parathyroid Hormone Intact 8 Weeks E21.0 - Primary hyperparathyroidism, M81.6 - Localized osteoporosis [[place]] Vitamin D 25-OH Total 8 Weeks E21.0 - Primary hyperparathyroidism, M81.6 - Localized osteoporosis [[place]] Magnesium 8 Weeks E21.0 - Primary hyperparathyroidism, M81.6 - Localized osteoporosis [[place]] Basic Metabolic Panel 8 Weeks E21.3 - Hyperparathyroidism, unspecified, M81.6 - Localized osteoporosis [[place]] Patient Instructions: Start taking 2000 units of vitamin D daily Take 1000 mg of calcium in your diet ( 2-3 cups of almond milk daily) After 8 weeks of doing this do 24 hr urine collection plus do blood work fasting same time as you hand in the urine jar 24 hr urine collection instructions You have been asked to collect your urine for 24 hours to assess for calcium excretion. You must choose a 24 hour period of time when you will be home. The morning of the first day, DISCARD the FIRST morning void and then note the time. You will collect every single void from then on for 24 hours. For example, if you wake up at 6am and urinate, flush down that void. You will then collect every drop of urine all day and all night through 6am the following day. You will urinate one last time at 6am for the collection. The jug of urine must be kept in the refrigerator until you bring it to the lab.You have been asked to collect your urine for 24 hours to assess for calcium excretion. You must choose a 24 hour period of time when you will be home. The morning of the first day, DISCARD the FIRST morning void and then note the time. You will collect every single void from then on for 24 hours. For example, if you wake up at 6am and urinate, flush down that void. You will then collect every drop of urine all day and all night through 6am the following day. You will urinate one last time at 6am for the collection. The jug of urine must be kept in the refrigerator until you bring it to the lab. Coding Level of Care Code New Pt Level 4 (90965) Diagnoses Localized osteoporosis without current pathological fracture M81.6 Osteoporosis type: localized Presence of current pathological fracture: without current pathological fracture Hyperparathyroidism E21.3 Time Spent (min) 45
== END 2024-11-08 14:21 | disposition home or self-care (01) ==
PROVIDERS: PCP Internal Medicine; Visit Provider Student in an Organized Health Care Education/Training Program
DX: M81.6 Localized osteoporosis [Lequesne] (principal); E21.3 Hyperparathyroidism, unspecified
CPT/HCPCS: 99204

== ENCOUNTER 2025-01-18 09:35 | Outpatient (REF) | payer BC, SELFPAY ==
--- OUTSIDE RECORDS SUMMARY | 2025-01-18 10:51 | XMS_ITS | Clinical Summary ---
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 Role Phone Unavailable Primary Care Provider Unavailabl e Social History Tobacco Use Types Packs/Day Years Used Date Smoking Tobacco: Never Assessed Sex and Gender Information Value Date Recorded Sex Assigned at Not on file Gender Identity Not on file Sexual Orientation Not on file Plan of Treatment Health Maintenance Due Date Last Done Comments Hepatitis C Screening 1955 COVID-19 Vaccine (#1) 1953 Depression Screening 1965 Preventative Health Evaluation 1971 DTap / Tdap / Td (1 - Tdap) 02/01/1972 Colon Cancer Screening (Colonoscopy) 1998 Breast Cancer Screening (Mammogram) 2003 Shingrix-Zoster Vaccine (1 of 2) 2003 Fall Risk Assessment 2018 Osteoporosis Screening (DEXA Scan) 2018 Pneumococcal Vaccine (1 of 1 - PCV) 2018 Influenza Vaccine (#1) 2024 RSV Adult > 60+ Yrs or Pregn ant (1 - 1-dose 75+ series) 02/01/2028 Hepatitis B Vaccines Aged Out No long er eligible based on patient's age to complete this topic RSV Ped < 20 months Aged Out No longe r eligible based on patient's age to complete this topic
[2025-01-18 12:03] LABS: Parathyroid Hormone Intact 139.1 pg/mL (8.7-77.1)
[2025-01-18 12:19] LABS: Albumin Level 4.1 g/dL (3.5-5.0); Anion Gap 11 (12-20); Blood Urea Nitrogen 10 mg/dL (9-16); Calcium 8.8 mg/dL (8.4-10.2); Carbon Dioxide 27 mmol/L (22-29); Chloride 107 mmol/L (96-108); Estimated Glomerular Filt Rate > 60; Glucose Random 86 mg/dL (60-115); Magnesium 2.1 mg/dL (1.6-2.6); Phosphorus 3.9 mg/dL (2.7-4.5); Potassium 3.6 mmol/L (3.3-5.1); Sodium 141 mmol/L (135-145)
[2025-01-18 12:31] LABS: Calcium 8.8 mg/dL (8.4-10.2)
[2025-01-18 12:34] LABS: Vitamin D 25-OH Total 26.6 ng/mL (>30)
[2025-01-18 12:39] LABS: Creatinine, mg/dL 36.17
[2025-01-18 14:06] LABS: Creatinine, 24Hr Urine 0.7 G/Day (1.0-2.0); Sodium 24 Hr Urine 75.9 mmol/Day (40-220); Total Volume 24 Hour Urine 2050 mL
[2025-01-19 22:49] LABS: Calcium, 24 Hr Urine 76 mg/24 h; Calcium/Creatinine Ratio 106 mg/g creat (30-275); Creatinine 24Hr Urine 0.72 g/24 h (0.50-2.15)
[2025-01-20 17:29] LABS: IgA 148 mg/dL (70-320); IgG 744 mg/dL (600-1540); IgM 45 mg/dL (50-300)
[2025-01-22 07:53] LABS: Collagen Type I C-Telopeptide 514 pg/mL (see note)
[2025-01-23 05:04] LABS: Alkaline Phosphatase Bone 13.2 mcg/L (5.6-29.0)
[2025-01-24 16:09] LABS: Kappa, Serum 176 mg/dL (176-443); Kappa/Lambda Ratio, Serum 2.17 (1.29-2.55); Lambda, Serum 81 mg/dL (91-240)
== END 2025-01-18 09:36 | disposition home or self-care (01) ==
LOC: HO.LAB 09:35
PROVIDERS: Student in an Organized Health Care Education/Training Program; PCP Internal Medicine; Visit Provider Student in an Organized Health Care Education/Training Program
DX: E21.0 Primary hyperparathyroidism (principal); D80.1 Nonfamilial hypogammaglobulinemia; M81.6 Localized osteoporosis [Lequesne]; E21.3 Hyperparathyroidism, unspecified
CPT/HCPCS: 36415; 80048; 82040; 82306; 82310; 82330; 82340; 82523; 82784; 83735; 83883; 83970; 84075; 84100; 84300; 86334

== ENCOUNTER 2025-02-07 12:35 | Outpatient (AMB) | payer BC, SELFPAY ==
[2025-02-07 12:39] VITALS: BP 114/70; PULSE 62; O2SAT 99; BMI 19.9
--- NOTE | 2025-02-07 12:39 | A.OFFVIS_ITS ---
Vital Signs 02/07/25 12:39 Height 5 ft 3 in Weight 112 lb 6.972 oz BMI 19.9 BP 114/70 Blood Pressure Location Rt brachial Position Sitting Pulse 62 Pulse Source Pulse Oximeter Pulse Oximetry (%) 99 Oxygen Delivery Method Room Air Intake Visit Reasons: hyperparathyroidism Intake Note: Patient presents here today for a follow-up on Hyperparathyroidism: Accompanied by: Self / Same As Patient Allergies No Known Allergies Allergy (Verified 02/07/25 12:40) Medication List - Last Reconciled 02/07/25 by Angelica Saleh MD bimatoprost 0.03% drps ophthalmic (eye) brinzolamide-brimonidine 1-0.2 % (Simbrinza) 1 drp ophthalmic (eye) TID cholecalciferol (vitamin D3) 25 mcg PO DAILY 90 days [compression stockings As directed] [compression stockings As directed] [transfer tub bench As directed] HPI Comments Details: 69-year-old female here today for follow up of hyperparathyroidism and osteoporosis. HPI from prior visit Due to B/L hip replacements, BMD of forearm was obtained 07/2024 which showed o steoporosis of forearm with Tscore of -3.4 , osteopenia of the spine -2.1. Labs from 09/23/24 show elevated PTH of 104, normal calcium level of 9.1 with albumin 4.1, normal ionized calcium 5.1 , egfr >60, vitamin D 29. 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 with localized osteoporosis of foearm Fracture History: None Height loss: none Back pain: none Pharmacotherapeutic hx: none Drug holiday none Family history: no family history of osteoporosis No family history of kidney stones Estrogen use: No HRT, OCP for 9 months when she was in her reproductive age Menstrual hx: menopause 50 years , menarche 11 years , irregular periods whole life, 4 pregnancies Secondary risk factors: Steroid use: None Hyperthyroidism: Neg Seizure medication use: None Chemo or Radiation use: Neg Heparin Use: Neg History of eating disorder: Negative USP immobilization: Negative History of kidney stones or disease: negative PI Use: Negative Chronic inflammatory lung disease: Negative Chronic inflammatory bowel disease: Negative Daily calcium intake: lactose and gluten intolerance , almond daily a cup every other day, cheese not really, no yogurt Vitamin D intake:1000 units daily, 5 years Exercise:bike and swim, bikes an hour twice a week , lifts 8 lbs weight 3-4 times a week Smoking history: none Dental: Has regular dental cleaning, no issues Denies abd pain, no polyuria , no constipation, no mental status changes/ brain fog / confusion Interval history Labs from 01/18/25: Showed normal calcium level of 8.8, albumin of 4.1, corrected calcium would be 8.7, ionized calcium normal at 5, phosphorus normal at 3.9, magnesium normal at 2.1, CTX elevated at 514, vitamin-D level now even lower at 26.6, PTH elevated at 139.1, normal kidney function, 24 hour urine calcium of 76 mg per 24 hours with a fractional excretion of calcium at 0.06 Physical exam General: sitting comfortably in no acute distress HEENT: normocephalic/atraumatic Neck: supple, symmetrical Cardiac: normal heart sounds Pulm: normal breath sounds B/L, no added breath sounds Abd: not distended, no tenderness Extremities: no edema, no signs of myxedema Laboratory Tests 04/01/22 05/15/23 02/18/24 10:51 10:48 11:23 Creatinine Estimated GFR Calcium 9.2 9.4 9.1 Ionized Calcium Alkaline Phosphatase Total Protein Total Protein (PEP) Albumin Albumin (PEP) Jbqvd-8-Awwppomcc Qjhxd-7-Gagvwtgkb Wkvt-5-Sveoedrz Enbk-7-Xjdrqcrm 25-OH Vitamin D Total 25-Hydroxy Vitamin D2 25-Hydroxy Vitamin D3 TSH PTH Intact 09/23/24 13:44 Creatinine 0.67 Estimated GFR > 60 Calcium 8.9 Ionized Calcium 5.1 Alkaline Phosphatase 86 Total Protein 6.7 Total Protein (PEP) 6.4 Albumin 4.1 Albumin (PEP) 4.0 Tkhrt-9-Hwgnxxeus 0.4 H Jbobl-3-Mxaafppoc 0.7 Tncm-0-Aqkjfupa 0.4 Qlpn-5-Jalejlgx 0.4 25-OH Vitamin D Total 29 L 25-Hydroxy Vitamin D2 <4 25-Hydroxy Vitamin D3 29 TSH 1.61 PTH Intact 104.2 H Laboratory Tests 01/18/25 01/18/25 07:00 10:04 Sodium 141 Potassium 3.6 Creatinine 0.67 Estimated GFR > 60 Random Glucose 86 Calcium 8.8 Ionized Calcium 5.0 Phosphorus 3.9 Magnesium 2.1 Alk Phos Bone Specific 13.2 Albumin 4.1 Collgn I C-Telopeptide 514 25-OH Vitamin D Total 26.6 L PTH Intact 139.1 H Ur 24 Hour Volume 2050 Ur Creatinine mg/dL 36.17 Ur Creatinine 24 Hour 0.7 L Ur Sodium 24 Hour 75.9 Ur Calcium 24 Hr 76 Calcium/Creat 24 Hr 106 BONE DENSITOMETRY 07/14/24 CLINICAL INDICATION: Menopause. COMPARISON: Previous BD dated 12/14/2021 and baseline BD dated 11/18/2018. TECHNIQUE: Using a [employer]ge Studio DXA System (software version: 13.1) manufactured by [employer], dual-energy x-ray absorptiometry was performed of the lumbar spine and left forearm radius 33%. The images are of good technical quality. Summary results are attached. Status post bilateral hip arthroplasty. FINDINGS: AP SPINE L1-L4: Current: BMD 0.930 g/cm2, Z-score 0.1, T-score -2.1, osteopenia, 3.7% increase from previous, 4.9% decrease from baseline (<5% change is not significant). Prior: BMD 0.897 g/cm2. Baseline: BMD 0.978 g/cm2. LEFT FOREARM RADIUS 33%: BMD 0.575 g/cm2, Z-score -1.5, T-score -3.4, osteoporosis. IDENTIFIED RISK FACTORS: Menopause, osteoporosis. HISTORY OF FRACTURE: None listed. MEDICATIONS: Vitamin D. MM/XR DEXA appendicular skeleton IMPRESSION: 1. DIAGNOSIS: Osteoporosis based on the lowest T-score value of -3.4 in the forearm radius 33% applying World Health Organization criteria. 2. 10-YEAR FRACTURE RISK PREDICTION, FRAX: According to the guidelines, FRAX calculation should only be performed on patients in the osteopenia bone density category. Therefore, FRAX was not performed on this patient. EXAMINATION: BONE DENSITOMETRY 12/14/21 CLINICAL INDICATION: Asymptomatic menopausal state. COMPARISON: Baseline BD dated 11/18/2018. TECHNIQUE: Using a [employer] Studio DXA System (software version: 13.1) manufactured by [employer], dual-energy x-ray absorptiometry was performed of the lumbar spine and left hip. The images are of good technical quality. Summary results are attached. FINDINGS: AP SPINE L1-L4: Current: BMD 0.897 g/cm2, Z-score -0.2, T-score -2.4, osteopenia, 8.3% decrease from baseline (<5% change is not significant). Baseline: BMD 0.978 g/cm2. LEFT FEMUR, NECK: Current: BMD 0.819 g/cm2, Z-score 0.4, T-score -1.6, osteopenia. Baseline: BMD 0.860 g/cm2. LEFT FEMUR, TOTAL: Current: BMD 0.782 g/cm2, Z-score 0.0, T-score -1.8, osteopenia, 9.0% decrease from baseline (<5% change is not significant). Baseline: BMD 0.859 g/cm2. IDENTIFIED RISK FACTORS: Menopause. HISTORY OF FRACTURE: None listed. MEDICATIONS: Vitamin D. MM/XR DEXA axial skeleton IMPRESSION: 1. DIAGNOSIS: Osteopenia based on the lowest T-score value of -2.4 in the lumbar spine applying World Health Organization criteria. 2. 10-YEAR FRACTURE RISK PREDICTION, FRAX: Major osteoporotic fracture (clinical spine, forearm, hip or shoulder) 8.4%. Hip fracture 1.3%. [facility] Medical History (Updated 11/08/24 @ 14:23 by Angelica Saleh MD) Hyperparathyroidism Normocalcemic primary hyperparathyroidism Venous insufficiency Abdominal pain Screen for colon cancer Physical exam Osteopenia Postmenopausal Hip pain, right Leg edema Surgical History Status post hip replacement Family History Mother Vascular dementia Glaucoma Father Pancreatic cancer LBBB (left bundle branch block) Social History Housing: House Alcohol intake: current Alcohol intake frequency: holidays/special occasions only Alcohol type: wine Patient Tobacco Use Status: Never used Tobacco e-Cigarette/Vaping Use: Never Used Second Hand Smoke Exposure: No service: No Current occupational status: retired Cognitive needs: No Hearing needs: No Vision needs: Yes Physical Exam Vital Signs: Last Vital Signs BP 114/70 02/07/25 12:39 BMI result Body Mass Index 19.9 Assessment & Plan Assessment & Plan (1) Osteoporosis: Code(s): M81.0 - Age-related osteoporosis without current pathological fracture Category: Medical Qualifiers: Osteoporosis type: localized Presence of current pathological fracture: without current pathological fracture Qualified Code(s): M81.6 - Localized osteoporosis [[place]] Plan: See below (2) Hyperparathyroidism: Code(s): E21.3 - Hyperparathyroidism, unspecified Category: Medical Plan: 69-year-old female here today for elevated PTH level and osteoporosis. Due to B/L hip replacements, BMD of forearm was obtained 07/2024 which showed osteoporosis of forearm with Tscore of -3.4 , osteopenia of the spine -2.1. Her risk factors for osteoporosis are age, being postmenopausal, petite physique, poor nutritional intake of calcium. Labs subsequently from 09/23/24 show elevated PTH of 104, normal calcium level of 9.1 with albumin 4.1, normal ionized calcium 5.1 , egfr >60, vitamin D 29. Given vitamin-D is on the lower side, this could possibly be mild secondary hyperparathyroidism in the setting of vitamin-D deficiency. I had asked her to increase her vitamin-D from a 1000 units daily to 2000 units with plan for repeat labs, however she was traveling and she has not been taking her vitamin-D regularly. Labs from 01/18/25: Showed normal calcium level of 8.8, albumin of 4.1, corrected calcium would be 8.7, ionized calcium normal at 5, phosphorus normal at 3.9, magnesium normal at 2.1, CTX elevated at 514, vitamin-D level now even lower at 26.6, PTH elevated at 139.1, normal kidney function, 24 hour urine calcium of 76 mg per 24 hours with a fractional excretion of calcium at 0.06 . FHH ruled out. No idiopathic hypercalciuria noted. She also has poor nutritional intake of calcium due to lactose intolerance, I have asked her to increase her calcium intake with other fortified calcium rich foods. Hence differentials are secondary hyperparathyroidism and normocalcemic hyperparathyroidism. If this is the latter, in which case given osteoporosis of the forearm she would qualify for surgery. At this time I have asked her to come back in 3 months after good vitamin-D supplementation of 2000 units daily. Plan: -increase vitamin-D to 2000 units daily -increase calcium intake to 1000 mg daily in diet -after 10-11 weeks of doing the above repeat blood work -follow up in 12 weeks to discuss results Plan See above Orders: Orders Calcium 10 Weeks E21.0 - Primary hyperparathyroidism, M81.6 - Localized osteoporosis [[place]] Basic Metabolic Panel 10 Weeks E21.0 - Primary hyperparathyroidism, M81.6 - Localized osteoporosis [[place]] Albumin Level 10 Weeks E21.0 - Primary hyperparathyroidism, M81.6 - Localized osteoporosis [[place]] Calcium, Ionized 10 Weeks E21.0 - Primary hyperparathyroidism, M81.6 - Localized osteoporosis [[place]] Phosphorus 10 Weeks E21.0 - Primary hyperparathyroidism, M81.6 - Localized osteoporosis [[place]] Vitamin D 25-OH Total 10 Weeks E21.0 - Primary hyperparathyroidism, M81.6 - Localized osteoporosis [[place]] Parathyroid Hormone Intact 10 Weeks E21.0 - Primary hyperparathyroidism, M81.6 - Localized osteoporosis [[place]] Patient Instructions: do vitamin 2000 units (4 drops for the brand you are using) daily Continue good intake of calcium in diet with 2-3 servings of calcium rich foods daily Do blood work at [facility] [address] [facility] April Make sure you ask them to fax me the results Follow up in April after blood work Coding Level of Care Code Est Pt Level 3 (40606) Diagnoses Localized osteoporosis without current pathological fracture M81.6 Osteoporosis type: localized Presence of current pathological fracture: without current pathological fracture Hyperparathyroidism E21.3
--- OUTSIDE RECORDS SUMMARY | 2025-02-07 14:13 | XMS_ITS | Clinical Summary ---
Author Organization [facility] Address [address] [place] [address] Care Team Providers Care Process Engineering Technician Name Role Phone Unavailable Primary Care Provider [...]
== END 2025-02-07 13:09 | disposition home or self-care (01) ==
LOC: HO.ENCR 12:36
PROVIDERS: PCP Internal Medicine; Visit Provider Student in an Organized Health Care Education/Training Program
DX: M81.6 Localized osteoporosis [Lequesne] (principal); E21.3 Hyperparathyroidism, unspecified
CPT/HCPCS: 99213

== ENCOUNTER → 2025-02-07 12:35 | Outpatient (BNVA) | payer BC, SELFPAY | PROVIDERS: PCP Internal Medicine; Visit Provider Student in an Organized Health Care Education/Training Program ==

== ENCOUNTER 2025-02-28 10:25 | Outpatient (AMB) | payer BC, SELFPAY ==
[2025-02-28 10:28] VITALS: BP 120/70; BMI 19.7
--- NOTE | 2025-02-28 10:28 | MHC.PC.OV ---
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 Required: No Accompanied by: Self / Same As Patient Allergies No Known Allergies Allergy (Verified 02/28/25 10:39) Medication List - Last Reconciled 02/28/25 by Razia Bean MD bimatoprost 0.03% drps ophthalmic (eye) brinzolamide-brimonidine 1-0.2 % (Simbrinza) 1 drp ophthalmic (eye) TID cholecalciferol (vitamin D3) 25 mcg PO DAILY 90 days [compression stockings As directed] [compression stockings As directed] [transfer tub bench As directed] Tobacco use date assessed: 02/28/25 Fall risk assessment: No Falls in past year Last assessed Fall Risk: 02/28/25 Dental Screening Dental Screen Date: 02/28/25 Did you have a dental visit in the last 12 months?: Yes Did you have a dental problem in the last 6 months where you did not have access to dental care?: No Was dental information given to patient?: Patient has dentist HPI HPI Comments History of Present Illness Details The patient is a 70-year-old female presenting for her annual physical examination. She reports a history of osteoporosis, which was identified via a bone density test performed last year. She continues to follow up with both a telecasting technician and an manager sales support, who have diagnosed her with primary hyperparathyroidism. She has been managing these conditions by increasing her intake of vitamin D and calcium. She experiences challenges managing lactose and gluten intolerance, having adjusted her diet to accommodate these dietary restrictions. Additionally, she mentions an aortic valve insufficiency but has been reassured by a community relations specialist that this is a minor issue not significantly impacting her health. Her family history is notable for a father who had pancreatic cancer and a mother who due to complications of dementia. She leads a lifestyle free of smoking and only drinks wine on special occasions. A colonoscopy in 2022 revealed polyps, with the recommendation to repeat the procedure in five years. She has undergone a left hip replacement in the past. There is a need to verify her vaccination status, particularly concerning pneumonia and tetanus due to incomplete records. - Osteoporosis: Follow-up with rheumatology and endocrinology; last bone density test in 2021 showed osteoporosis. - Primary Hyperparathyroidism: Managed with increased vitamin D and calcium intake. - Vaccinations: Uncertain about pneumonia and tetanus vaccines; requires verification. - Recent colonoscopy (2022) showing polyps, with a planned follow-up in 2027. - Routine mammogram and bone density completed last year. - Echocardiogram conducted last year indicating a normal ejection fraction. [facility] Medical History Hyperparathyroidism Normocalcemic primary hyperparathyroidism Venous insufficiency Abdominal pain Screen for colon cancer Physical exam Osteopenia Postmenopausal Hip pain, right Leg edema Surgical History Status post hip replacement Family History Mother Vascular dementia Glaucoma Father Pancreatic cancer LBBB (left bundle branch block) Social History Housing: House Alcohol intake: current Alcohol intake frequency: holidays/special occasions only Alcohol type: wine Patient Tobacco Use Status: Never used Tobacco e-Cigarette/Vaping Use: Never Used Second Hand Smoke Exposure: No service: No Current occupational status: retired Cognitive needs: No Hearing needs: No Vision needs: Yes Questionnaire PHQ-9 Over the last 2 weeks, how often have you been bothered by any of the following problems? 1. Little interest or pleasure in doing things: not at all 2. Feeling down, depressed, or hopeless: not at all 3. Trouble falling or staying asleep, or sleeping too much: not at all 4. Feeling tired or having little energy: not at all 5. Poor appetite or overeating: not at all 6. Feeling bad about yourself - or that you are a failure or have let yourself or your family down: not at all 7. Trouble concentrating on things, such as reading the newspaper or watching television: not at all 8. Moving or speaking so slowly that other people could have noticed. Or the opposite - being so fidgety or restless that you have been moving around a lot more than usual: not at all 9. Thoughts that you would be better off or of hurting yourself in some way: not at all Total score: 0 Depression Screening Interpretation: Negative Depression Screening Done: Yes 95054 - PHQ-9 Billing: Yes Source: Developed by Drs. Arnold Smith, Prieto Chung and colleagues, with an educational jonathon from [employer]. Thrive Questionnaire Date Thrive assessed: 02/28/25 I am a: Patient What is your living situation today?: I have a steady place to live Within the past 12 months, did the food you bought not last and you didn't have the money to get more?: Never true Within the past 12 months, did you worry whether your food would run out before you got money to buy more?: Never true Do you have trouble paying for medicines?: No Do you have trouble getting transportation to medical appointments?: No Do you have trouble paying your heating and electricity bill?: No Do you have trouble taking care of your child, family member or friend?: No Do you have trouble with day-to-day activities such as bathing, preparing meals, shopping, managing finances, etc.?: No Are you currently unemployed and looking for a job?: No Are you interested in more education?: No Please select the resources that you would like help with: None Currently or been in a relationship where the following occur: No concerns reported THRIVE Score: 0 AUDIT C Alcohol Use Questionnaire (AUDIT-C) 1. How often do you have a drink containing alcohol?: Never Total Score: 0 Score Reviewed/Action Taken: No VINH-7 AMB Questionnaire VINH-7 Date VINH - 7 assessed: 02/28/25 Feeling nervous, anxious, or on edge: 0 = Not at all Not being able to stop or control worryin = Not at all Worrying too much about different things: 0 = Not at all Trouble relaxin = Not at all Being so restless that it is hard to sit still: 0 = Not at all Becoming easily annoyed or irritable: 0 = Not at all Feeling afraid as if something awful might happen: 0 = Not at all Total VINH-7 score (0-4 normal; 5-9 mild; 10-14 moderate; 15-21 severe): 0 Source: Developed by Vicky Cherry Kurt Kroenke and colleagues, with an educational jonathon from [employer]. VINH-7 Assessment Billing VINH-7 Assessment Tool: VINH-7 Assessment 16905 Review of Systems Const All systems reviewed & are unremarkable except as noted in HPI and below Card Denies chest pain at rest, Denies chest pain with activity, Denies edema, Denies irregular heart rhythm, Denies claudication, Denies dyspnea, Denies dyspnea on exertion, Denies orthopnea, Denies paroxysmal nocturnal dyspnea and Denies slow heart rate Resp Denies cough, Denies dyspnea and Denies dyspnea on exertion GI Denies abdominal pain, Denies change in bowel habits, Denies excessive flatus, Denies nausea and Denies vomiting Denies urinary incontinence, Denies urinary hesitancy and Denies urinary urgency Musc Denies abnormal gait, Denies atrophy, Denies deformity and Denies limited range of motion Skin/Breast Denies bleeding lesions, Denies changing lesions and Denies rash Neuro Denies abnormal gait and Denies lack of coordination Physical exam (Primary Care) Vital Signs: Last Vital Signs BP 120/70 02/28/25 10:28 BMI result Body Mass Index 19.7 Tobacco/Smoking Status: Tobacco use Status Tobacco use date assessed 02/28/25 02/28/25 10:34 Patient Tobacco Use Status Never used Tobacco 02/28/25 10:34 e-Cigarette/Vaping Use Never Used 02/28/25 10:34 PHQ-9: PHQ-9 Score PHQ-9: Total score 0 02/28/25 10:34 Depression Screening Interpretation: Negative Thrive Assessment: Date of Thrive Assessment Date Thrive assessed 02/28/25 02/28/25 10:34 Currently or been in a relationship where the following occur: No concerns reported [facility] Head: Yes normal to inspection, Yes normocephalic and Yes atraumatic Ears: external ears normal Eyes General: appearance normal, both eyes and all related structures Eyelids: Yes eyelids normal Conjunctivae: conjunctivae normal Neck Neck: Yes normal visual inspection and Yes supple Resp Effort & Inspection: normal respiratory effort Auscultation: clear to auscultation bilaterally Cardio Jugular venous distension: no JVD Rate: regular rate Rhythm: regular rhythm Heart sounds: S1 normal heart sound present and S2 normal heart sound present GI Inspection: Yes normal to inspection Palpation (GI): Soft to palpation and nontender Auscultation: normal bowel sounds Skin General skin exam: no rashes or lesions noted Neuro General: no focal motor deficits Extrem General: Yes full ROM Psych Appearance: grossly normal Coding Level of Care Code Est Pt Prev Care >65y(19799) Diagnoses Physical exam Z00.00 Normocalcemic primary hyperparathyroidism E21.0 Additional Codes PHQ-9 - 04249 - PHQ-9 Billing: Yes ([id number]) VINH-7 Assessment Billing - VINH-7 Assessment Tool: VINH-7 Assessment 17913 ([id number]) Time Spent (min) 31 Assessment & Plan Assessment & Plan (1) Physical exam: Code(s): Z00.00 - Encounter for general adult medical examination without abnormal findings Category: Medical (2) Normocalcemic primary hyperparathyroidism: Code(s): E21.0 - Primary hyperparathyroidism Category: Medical Plan I will focus on the patient's osteoporosis management, ensuring continued vitamin D and calcium supplementation is maintained, along with monitoring via bone density tests. Primary hyperparathyroidism requires adherence to her current vitamin D regimen. We must verify her vaccination records for pneumonia and tetanus given age-related recommendations. No further interventions are required for her aortic valve insufficiency at this stage, considering the low-level risk. We will repeat her cholesterol testing to monitor any changes. Given her family history, it remains important to focus on preventive measures. The colonoscopy findings will be followed up as per the standard timeline unless symptomatic triggers suggest early intervention is warranted. Patient was informed and verbally consented to the use of an ambient scribe for clinic note documentation during this visit. I discussed with the patient the importance of maintaining her current vitamin D and calcium intake to manage osteoporosis and primary hyperparathyroidism effectively. I advised her to continue her dietary adjustments due to lactose and gluten intolerance and suggested staying vigilant with the known effects on her nutrition. We reviewed the need to update her vaccination records, specifically for pneumonia and tetanus. We agreed that her current cardiovascular status given her aortic valve insufficiency does not require intervention but emphasized remaining aware of any new symptoms. Screening with cholesterol testing will be repeated, and I acknowledge her family history's relevance in managing her health proactively. The colonoscopy follow-up plan was reaffirmed for 2027, contingent on symptom stability. Orders: Orders Lipid Panel Today Z00.00 - Encounter for general adult medical examination without abnormal findings Patient Instructions: - Check with your previous providers regarding the pneumonia and tetanus vaccines. - Continue taking vitamin D and calcium as directed. - Follow your gluten and lactose intolerance dietary restrictions. - Repeat your cholesterol test to monitor levels. - Attend follow-up for osteoporosis and hyperparathyroidism management. - Maintain regular physical exercise at a moderate level. - Report any new symptoms related to your heart murmurs or overall health changes.
--- OUTSIDE RECORDS SUMMARY | 2025-02-28 10:28 | XMS_ITS | Clinical Summary ---
Author Organization [facility] Address [address] [place] [address] Care Team Providers Care Tar Pot Man Name Role Phone Unavailable Primary Care Provider [...]
== END 2025-02-28 10:58 | disposition home or self-care (01) ==
LOC: HO.HMCH 10:26
PROVIDERS: PCP Internal Medicine; Visit Provider Internal Medicine
DX: Z00.00 Encounter for general adult medical examination without abnormal findings (principal); E21.0 Primary hyperparathyroidism

== ENCOUNTER → 2025-02-28 10:25 | Outpatient (BNVA) | payer BC, SELFPAY | PROVIDERS: PCP Internal Medicine; Visit Provider Internal Medicine | DX: Z00.00 Encounter for general adult medical examination without abnormal findings (principal); E21.0 Primary hyperparathyroidism; M81.0 Age-related osteoporosis without current pathological fracture | CPT/HCPCS: 96127 ==

== ENCOUNTER 2025-03-01 10:07 | Outpatient (REF) | payer BC, SELFPAY ==
--- OUTSIDE RECORDS SUMMARY | 2025-03-01 11:32 | XMS_ITS | Clinical Summary ---
Author Organization [facility] Address [address] [place] [address] Care Team Providers Care Ball Machine Operator Name Role Phone Unavailable Primary Care Provider [...]
[2025-03-01 11:58] LABS: Cholesterol 240 mg/dL (<200); HDL Cholesterol 68 mg/dL (>40); LDL Cholesterol Calculated 159 mg/dL (<100); Triglycerides 68 mg/dL (<150)
== END 2025-03-01 10:08 | disposition home or self-care (01) ==
LOC: HO.LAB 10:07
PROVIDERS: PCP Internal Medicine; Visit Provider Internal Medicine
DX: Z00.00 Encounter for general adult medical examination without abnormal findings (principal); Z13.6 Encounter for screening for cardiovascular disorders
CPT/HCPCS: 36415; 80061

== ENCOUNTER 2025-05-06 10:08 | Outpatient (AMB) | payer BC, SELFPAY ==
[2025-05-06 10:16] VITALS: BP 120/66; PULSE 67; O2SAT 95
--- NOTE | 2025-05-06 10:16 | A.OFFVIS_ITS ---
Vital Signs 3 05/06/25 10:16 Height 5 ft 3 in Weight 112 lb 14.027 oz BMI 20.0 BP 120/66 Blood Pressure Location Lt brachial Position Sitting Pulse 67 Pulse Source Pulse Oximeter Pulse Oximetry (%) 95 Oxygen Delivery Method Room Air Intake Visit Reasons: hyperparathyroidism Intake Note: Patient present today for hyperparathyroidism. Solution Lead Required: No Accompanied by: Self / Same As Patient Allergies No Known Allergies Allergy (Verified 05/06/25 10:20) Medication List - Last Reconciled 05/06/25 by Angelica Saleh MD bimatoprost 0.03% drps ophthalmic (eye) cholecalciferol (vitamin D3) 25 mcg PO DAILY 90 days [compression stockings As directed] [compression stockings As directed] [transfer tub bench As directed] HPI Comments Details: 69-year-old female here today for follow up of osteoporosis. HPI from prior visit Due to B/L hip replacements, BMD of forearm was obtained 07/2024 which showed osteoporosis of forearm with Tscore of -3.4 , osteopenia of the spine -2.1. Labs from 09/23/24 show elevated PTH of 104, normal calcium level of 9.1 with albumin 4.1, normal ionized calcium 5.1 , egfr >60, vitamin D 29. 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 with localized osteoporosis of foearm Fracture History: None Height loss: none Back pain: none Pharmacotherapeutic hx: none Drug holiday none Family history: no family history of osteoporosis No family history of kidney stones Estrogen use: No HRT, OCP for 9 months when she was in her reproductive age Menstrual hx: menopause 50 years , menarche 11 years , irregular periods whole life, 4 pregnancies Secondary risk factors: Steroid use: None Hyperthyroidism: Neg Seizure medication use: None Chemo or Radiation use: Neg Heparin Use: Neg History of eating disorder: Negative buttermaker immobilization: Negative History of kidney stones or disease: negative PI Use: Negative Chronic inflammatory lung disease: Negative Chronic inflammatory bowel disease: Negative Daily calcium intake: lactose and gluten intolerance , almond daily a cup every other day, cheese not really, no yogurt Vitamin D intake:1000 units daily, 5 years Exercise:bike and swim, bikes an hour twice a week , lifts 8 lbs weight 3-4 times a week Smoking history: none Dental: Has regular dental cleaning, no issues Denies abd pain, no polyuria , no constipation, no mental status changes/ brain fog / confusion Labs from 01/18/25: Showed normal calcium level of 8.8, albumin of 4.1, corrected calcium would be 8.7, ionized calcium normal at 5, phosphorus normal at 3.9, magnesium normal at 2.1, CTX elevated at 514, vitamin-D level now even lower at 26.6, PTH elevated at 139.1, normal kidney function, 24 hour urine calcium of 76 mg per 24 hours with a fractional excretion of calcium at 0.06 Interval history Labs from 04/27/2025 show EGFR 93, calcium of 9.5 with albumin of 4.5, corrected calcium would be 9, vitamin-D improved to 32.2, phosphorus normal at 4, ionized calcium normal at 5.1, PTH normal at 57. Fractures: None Back pain: None Dental screening: Up to treatment with good dental care Vitamin-D: vitamin 2000 units (4 drops for the brand you are using) daily Daily calcium intake: lactose and gluten intolerance , almond daily a cup every other day, cheese not really, no yogurt Physical exam General: sitting comfortably in no acute distress HEENT: normocephalic/atraumatic Neck: supple, symmetrical Cardiac: normal heart sounds Pulm: normal breath sounds B/L, no added breath sounds Abd: not distended, no tenderness Extremities: no edema, no signs of myxedema Laboratory Tests 04/01/22 05/15/23 02/18/24 10:51 10:48 11:23 Creatinine Estimated GFR Calcium 9.2 9.4 9.1 Ionized Calcium Alkaline Phosphatase Total Protein Total Protein (PEP) Albumin Albumin (PEP) Mptqe-0-Laabegmxx Didxg-0-Xgaetctep Rcsf-3-Owvvtysl Bavd-6-Ezvssozo 25-OH Vitamin D Total 25-Hydroxy Vitamin D2 25-Hydroxy Vitamin D3 TSH PTH Intact 09/23/24 13:44 Creatinine 0.67 Estimated GFR > 60 Calcium 8.9 Ionized Calcium 5.1 Alkaline Phosphatase 86 Total Protein 6.7 Total Protein (PEP) 6.4 Albumin 4.1 Albumin (PEP) 4.0 Flpsz-1-Rnoszadhi 0.4 H Bpznl-0-Trkijwsgl 0.7 Kydj-8-Brougjmc 0.4 Hczw-9-Rcyimfwz 0.4 25-OH Vitamin D Total 29 L 25-Hydroxy Vitamin D2 <4 25-Hydroxy Vitamin D3 29 TSH 1.61 PTH Intact 104.2 H Laboratory Tests 01/18/25 01/18/25 07:00 10:04 Sodium 141 Potassium 3.6 Creatinine 0.67 Estimated GFR > 60 Random Glucose 86 Calcium 8.8 Ionized Calcium 5.0 Phosphorus 3.9 Magnesium 2.1 Alk Phos Bone Specific 13.2 Albumin 4.1 Collgn I C-Telopeptide 514 25-OH Vitamin D Total 26.6 L PTH Intact 139.1 H Ur 24 Hour Volume 2050 Ur Creatinine mg/dL 36.17 Ur Creatinine 24 Hour 0.7 L Ur Sodium 24 Hour 75.9 Ur Calcium 24 Hr 76 Calcium/Creat 24 Hr 106 BONE DENSITOMETRY 07/14/24 CLINICAL INDICATION: Menopause. COMPARISON: Previous BD dated 12/14/2021 and baseline BD dated 11/18/2018. TECHNIQUE: Using a Open[employer] DXA System (software version: 13.1) manufactured by [employer], dual-energy x-ray absorptiometry was performed of the lumbar spine and left forearm radius 33%. The images are of good technical quality. Summary results are attached. Status post bilateral hip arthroplasty. FINDINGS: AP SPINE L1-L4: Current: BMD 0.930 g/cm2, Z-score 0.1, T-score -2.1, osteopenia, 3.7% increase from previous, 4.9% decrease from baseline (<5% change is not significant). Prior: BMD 0.897 g/cm2. Baseline: BMD 0.978 g/cm2. LEFT FOREARM RADIUS 33%: BMD 0.575 g/cm2, Z-score -1.5, T-score -3.4, osteoporosis. IDENTIFIED RISK FACTORS: Menopause, osteoporosis. HISTORY OF FRACTURE: None listed. MEDICATIONS: Vitamin D. MM/XR DEXA appendicular skeleton IMPRESSION: 1. DIAGNOSIS: Osteoporosis based on the lowest T-score value of -3.4 in the forearm radius 33% applying World Health Organization criteria. 2. 10-YEAR FRACTURE RISK PREDICTION, FRAX: According to the guidelines, FRAX calculation should only be performed on patients in the osteopenia bone density category. Therefore, FRAX was not performed on this patient. EXAMINATION: BONE DENSITOMETRY 12/14/21 CLINICAL INDICATION: Asymptomatic menopausal state. COMPARISON: Baseline BD dated 11/18/2018. TECHNIQUE: Using a [employer] DXA System (software version: 13.1) manufactured by [employer], dual-energy x-ray absorptiometry was performed of the lumbar spine and left hip. The images are of good technical quality. Summary results are attached. FINDINGS: AP SPINE L1-L4: Current: BMD 0.897 g/cm2, Z-score -0.2, T-score -2.4, osteopenia, 8.3% decrease from baseline (<5% change is not significant). Baseline: BMD 0.978 g/cm2. LEFT FEMUR, NECK: Current: BMD 0.819 g/cm2, Z-score 0.4, T-score -1.6, osteopenia. Baseline: BMD 0.860 g/cm2. LEFT FEMUR, TOTAL: Current: BMD 0.782 g/cm2, Z-score 0.0, T-score -1.8, osteopenia, 9.0% decrease from baseline (<5% change is not significant). Baseline: BMD 0.859 g/cm2. IDENTIFIED RISK FACTORS: Menopause. HISTORY OF FRACTURE: None listed. MEDICATIONS: Vitamin D. MM/XR DEXA axial skeleton IMPRESSION: 1. DIAGNOSIS: Osteopenia based on the lowest T-score value of -2.4 in the lumbar spine applying World Health Organization criteria. 2. 10-YEAR FRACTURE RISK PREDICTION, FRAX: Major osteoporotic fracture (clinical spine, forearm, hip or shoulder) 8.4%. Hip fracture 1.3%. FORMERLY [facility], [facility] Medical History Hyperparathyroidism Normocalcemic primary hyperparathyroidism Venous insufficiency Abdominal pain Screen for colon cancer Physical exam Osteopenia Postmenopausal Hip pain, right Leg edema Surgical History Status post hip replacement Family History (Updated 02/28/25 @ 10:47 by aRzia Bean MD) Mother Vascular dementia Glaucoma Father Pancreatic cancer LBBB (left bundle branch block) Social History Housing: House Alcohol intake: current Alcohol intake frequency: holidays/special occasions only Alcohol type: wine Patient Tobacco Use Status: Never used Tobacco e-Cigarette/Vaping Use: Never Used Second Hand Smoke Exposure: No service: No Current occupational status: retired Cognitive needs: No Hearing needs: No Vision needs: Yes Assessment & Plan Assessment & Plan (1) Osteoporosis: Code(s): M81.0 - Age-related osteoporosis without current pathological fracture Category: Medical Qualifiers: Osteoporosis type: localized Presence of current pathological fracture: without current pathological fracture Qualified Code(s): M81.6 - Localized osteoporosis [Lequesne] Plan: 69-year-old female here today for follow up elevated PTH level and osteoporosis. Due to B/L hip replacements, BMD of forearm was obtained 07/2024 which showed osteoporosis of forearm with Tscore of -3.4 , osteopenia of the spine -2.1. Her risk factors for osteoporosis are age, being postmenopausal, petite physique, poor nutritional intake of calcium. Labs subsequently from 09/23/24 show elevated PTH of 104, normal calcium level of 9.1 with albumin 4.1, normal ionized calcium 5.1 , egfr >60, vitamin D 29. Given vitamin-D is on the lower side plus poor nutritional intake of calcium, we suspected secondary hyperparathyroidism in the setting of vitamin-D deficiency. Labs from 01/18/25: Showed normal calcium level of 8.8, albumin of 4.1, corrected calcium would be 8.7, ionized calcium normal at 5, phosphorus normal at 3.9, magnesium normal at 2.1, CTX elevated at 514, vitamin-D level now even lower at 26.6, PTH elevated at 139.1, normal kidney function, 24 hour urine calcium of 76 mg per 24 hours with a fractional excretion of calcium at 0.06 . FHH ruled out. No idiopathic hypercalciuria noted. After 10 weeks of doing increased vitamin-D and improve nutritional intake of calcium, labs repeated Labs from 04/27/2025 show EGFR 93, calcium of 9.5 with albumin of 4.5, corrected calcium would be 9, vitamin-D improved to 32.2, phosphorus normal at 4, ionized calcium normal at 5.1, PTH normal at 57. These were done at [facility]. At this time PTH level has normalized her calcium levels tenderness normal, either her PTH was elevated in the setting of poor nutritional intake of calcium and vitamin-D deficiency resulting in secondary hyperparathyroidism and now PTH has normalized when both of those have improved or I have also noticed some erroneous PTH elevated readings at our lab recently, or it could be both of those. Regardless now we need to address her osteoporosis. Secondary workup has been unremarkable. CTX is elevated from January 2025 at 514 also indicative of increased bone resorption. I discussed conservative measures including adequate calcium intake, adequate vitamin D levels as well as the role of weightbearing exercises in general being good for bone health. In addition to conservative management with calcium and vitamin D; I do believe she would benefit from antiresorptive therapy in terms of reducing future fracture risk. Today we discussed the options of Fosamax and Reclast. I also discussed the option of Prolia however at this time would like to recommend bisphosphonate as it is first-line therapy for osteoporosis. I counseled regarding the mechanism of action, route of administration, common side effects as well as black box warnings particularly osteonecrosis of the jaw and atypical femur fracture. At this time patient would like to think further about these medications and read up on her own and she will let us know when she is ready to begin therapy. Plan: -continue vitamin-D to 2000 units daily -continue calcium intake to 1000 mg daily in diet -role of weight-bearing exercise discussed -patient will let us know when she has decided to begin antiresorptive therapy. At this time she would like to hold off and read up on her own -follow up in 4 months with blood work done a week prior to follow up (2) Hyperparathyroidism: Code(s): E21.3 - Hyperparathyroidism, unspecified Category: Medical Plan: See above Plan I spent 30 minutes in reviewing the record, seeing the patient and documenting in the medical record. Orders: Orders 2 Calcium 08/15/25 M81.6 - Localized osteoporosis [Lequesne] Alkaline Phosphatase Bone 08/15/25 M81.6 - Localized osteoporosis [Lequesne] Collagen Type I C-Telopeptide 08/15/25 M81.6 - Localized osteoporosis [Lequesne] Creatinine 08/15/25 M81.6 - Localized osteoporosis [Lequesne] Albumin Level 08/15/25 M81.6 - Localized osteoporosis [Lequesne] Calcium, Ionized 08/15/25 M81.6 - Localized osteoporosis [Lequesne] Vitamin D 25-OH Total 08/15/25 M81.6 - Localized osteoporosis [Lequesne] Phosphorus 10/06/25 M81.6 - Localized osteoporosis [Lequesne] Patient Instructions: do vitamin 2000 units (4 drops for the brand you are using) daily Continue good intake of calcium in diet with 2-3 servings of calcium rich foods daily Please let us know once you decide between Fosamax ( Alendronate ) vs Reclast ( Zoledronic acid) vs Prolia (Denosumab ) Do fasting 8 AM blood work at [facility] lab at least 2 weeks prior to your next follow up in August 2025 Weight bearing exercise discussed Coding Level of Care Code Est Pt Level 4 (59009) Diagnoses Localized osteoporosis without current pathological fracture M81.6 Osteoporosis type: localized Presence of current pathological fracture: without current pathological fracture Hyperparathyroidism E21.3 Time Spent (min) 30
--- OUTSIDE RECORDS SUMMARY | 2025-05-06 10:46 | XMS_ITS | Clinical Summary ---
Author Organization [facility] Address [address] [place] [address] Care Team Providers Care Creative Arts Music Therapist Name Role Phone Unavailable Primary Care Provider [...] of 1 - PCV) 2018 Influenza Vaccine (Season Ended) 2025 RSV Adult > 60+ Yrs or Pregn ant (1 - 1-dose 75+ series) 02/01/2028 Hepatitis B Vaccines Aged Out No long er eligible based on patient's age to complete this topic RSV Ped < 20 months Aged Out No longe r eligible based on patient's age to complete this topic
== END 2025-05-06 10:35 | disposition home or self-care (01) ==
LOC: HO.ENCR 10:09
PROVIDERS: PCP Internal Medicine; Visit Provider Student in an Organized Health Care Education/Training Program
DX: M81.6 Localized osteoporosis [Lequesne] (principal); E21.3 Hyperparathyroidism, unspecified
CPT/HCPCS: 99214

== ENCOUNTER → 2025-08-11 14:15 | Outpatient (BNV) | payer OTHER, SELFPAY | PROVIDERS: Visit Provider Internal Medicine | DX: Z12.31 Encounter for screening mammogram for malignant neoplasm of breast (principal) | CPT/HCPCS: 77063; 77067 ==

== ENCOUNTER 2025-08-11 14:18 | Outpatient (REF) | payer OTHER, SELFPAY ==
--- OUTSIDE RECORDS SUMMARY | 2025-08-11 15:56 | XMS_ITS | Clinical Summary ---
Author Organization [facility] Address [address] [place] [address] Phone Care Team Providers Care Powerhouse Tender Name Role Phone Razia Rosales MD Primary Care Provid er Vincent Garcia MD Unavailable [phone] Allergies Active Allergy Reactions Criticality Noted Date Comments Gluten Protein 02/12/2022 Lactose 02/12/2022 Medications bimatoprost (LUMIGAN) 0.03 % ophthalmic drops 2 Active VITAMIN D3 25 mcg (1,000 unit) capsule 2 Active amoxicillin (AMOXIL) 500 MG capsule Take 4 capsules (2,000 mg total) by mouth once as needed. ..Please take 2000 mg Amoxicillin one hour prior to any dental work 12 capsule 1 4 Active Active Problems Problem Noted Date Diagnosed Date Osteoarthritis of left hip, unspecified osteoart hritis type 05/05/2024 History of right hip replacement 02/12/2022 Social History Tobacco Use Types Packs/Day Years Used Date Smoking Tobacco: Never Smokeless Tobacco: Never Tobacco Cessation:Counseling Given: Not Answered Alcohol Use Standard Drinks/Week Comments Never 0 (1 standard drink = 0.6 oz pur e alcohol) Education Answer Date Recorded Are you interested in more education? Not on domi e 03/08/2023 Are you concerned about learning? Not on file 03/08/2023 No 03/08/2023 No 03/08/2023 Digital Access Answer Date Recorded No 04/08/2023 No 04/08/2023 Reliable internet access at home? Not on file 04/08/2023 Device with a working camera? Not on file Intimate Partner Violence Answer Date R ecorded Are you denied basic needs s uch as food, clothing, or medical care? No 05/04/2024 In the past 12 months have y ou been in a relationship with a person who hurts, threatens, or tries to control you? No 05/04/2024 Are you denied basic needs s uch as food, clothing, or medical care? No 05/04/2024 In the past 12 months have y ou been in a relationship with a person who hurts, threatens, or tries to control you? No 05/04/2024 Comments No Sex and Gender Information Value Date Recorded Sex Assigned at Female 12/06/2021 12:58 PM EST Legal Sex Female 12:57 PM EST Gender Identity Female 12/06/2021 12:58 PM EST Sexual Orientation Straight 12/06/2021 12 :58 PM EST Last Filed Vital Signs Vital Sign Reading Time Taken Comments Blood Pressure 114/58 05/05/2024 9:03 AM EDT Pulse 72 05/05/2024 9:03 AM EDT Temperature 37.2 C (98.9 F) 05/05/2024 7:46 AM EDT Respiratory Rate 18 05/05/2024 7:46 AM EDT Oxygen Saturation 98% 05/05/2024 9:03 AM EDT Inhaled Oxygen Concentration - - Weight 49 kg (108 lb) 05/04/2024 9:00 AM EDT Height 160 cm (5' 2.99 ) 05/04/2024 9:00 AM EDT Body Mass Index 19.14 05/04/2024 9:00 AM EDT Plan of Treatment Health Maintenance Due Date Last Done Comments Adult Td,Tdap Booster 1953 LIPID PANEL 1953 DEPRESSION SCREENING 1965 HEPATITIS C SCREENING 1971 MAMMOGRAM 1993 COLOGUARD 1998 COLONOSCOPY 1998 COLORECTAL CANCER SCREENING 1998 FIT TEST 1998 FOBT 1998 SIGMOIDOSCOPY 1998 VIRTUAL COLONOSCOPY 1998 PNEUMOCOCCAL VACCINES (50+ years) (1 of 1 - PCV) 2003 ZOSTER VACCINES (1 of 2) 2003 OSTEOPOROSIS SCREENING INITI AL (ONE-TIME) 2018 INFLUENZA VACCINE (#1) 2025 8, 09/19/2017 COVID-19 VACCINE (3 - 2024-2 6 season) 2025 12/11/2021, 02/19/2021 RSV VACCINE (1 - 1-dose 75+ series) 02/01/2028 SMOKING STATUS SCREENING (On ce After 26 Yrs) Completed 05/04/2024 HEPATITIS A VACCINES Aged Out No long er eligible based on patient's age to complete this topic HIB VACCINES Aged Out No longer eligi ble based on patient's age to complete this topic MENINGOCOCCAL VACCINES (ACWY) Aged Out No longer eligible based on patient's age to complete this topic MENINGOCOCCAL VACCINES (B) Aged Out N o longer eligible based on patient's age to complete this topic Medical Devices Implanted Type Area Pre Kindergarten Teacher Device Identifier Shelf Expiration Date Model / Serial / Lot Hip Stem [id number] Size 4 127deg Femoral Accolade Titanium Hydroxyapatite Coating - [id number] Implanted:Qty: 1 on 05/04/2024 by Kulwant Garrett MD at [facility] NODATA Left: Femur [employer] 02/14/2029 [id number] / / [id number] Hip 36mm 2.5 Implant Hd Alumina Ceramic Modular Delta Biolox Minus 04 - [id number] Implanted:Qty: 1 on 05/04/2024 by Kulwant Garrett MD at [facility] STANDARD Left: Acetabulum [employer] 01/18/2029 [id number] / / [id number] Screw Hip 6.5x20mm G7 Low Profile Dome 16a - [id number] Implanted:Qty: 1 on 02/12/2022 by Kulwant Garrett MD at [facility] Right: Hip [employer] 03/29/2031 [id number] / / [id number] Screw Hip 6.5x20mm G7 Low Profile Dome 16a - [id number] Implanted:Qty: 1 on 02/12/2022 by Kulwant Garrett MD at [facility] Right: Hip [employer] 03/29/2031 [id number] / / [id number] Hip Liner 32mm C Acetabular Neutral G7 Vit E - [id number] Implanted:Qty: 1 on 02/12/2022 by Kulwant Garrett MD at [facility] Right: Hip MARJAN / [employer] 12/19/2026 [id number] / / [id number] Screw Hip 6.5x20mm G7 Low Profile Dome 16a - [id number] Implanted:Qty: 1 on 02/12/2022 by Kulwant Garrett MD at [facility] Right: Hip [employer] 05/30/2031 [id number] / / [id number] Hip Shell 48mm Acetabular Multihole G7 - [id number] Implanted:Qty: 1 on 02/12/2022 by Kulwant Garrett MD at [facility] Right: Hip [employer] 09/04/2030 [id number] / / [id number] Biolox Delta Modular Ceramic Head 32mm -3mm Neck Implanted:Qty: 1 on 02/12/2022 by Kulwant Garrett MD at [facility] Right: Acetabulum MARJAN 08/21/2031 / / [id number] Hip Stem 8 8.0x34.3 136mm 1 Size Taperloc Pps Coated Complete Full Profile Standard Offset Type - [id number] Implanted:Qty: 1 on 02/12/2022 by Kulwant Garrett MD at [facility] Right: Hip [employer] 05/10/2024 [id number] / / [id number] Screw Bone 6.5x20mm Low Profile - [id number] Implanted:Qty: 1 on 05/04/2024 by Kulwant Garrett MD at [facility] Left: Acetabulum [employer] 01/12/2029 [id number] / / [id number] Screw Bone 6.5x25mm Low Profile - [id number] Implanted:Qty: 1 on 05/04/2024 by Kulwant Garrett MD at [facility] Left: Acetabulum [employer] 02/09/2029 [id number] / / [id number] Hip Acetabular 50d Shell Trident I Clusterhole 3d Surface Tritanium - [id number] Implanted:Qty: 1 on 05/04/2024 by Kulwant Garrett MD at [facility] Left: Acetabulum [employer] 03/06/2029 [id number] / / [id number] Acetabular Insert 3.9x36mm 0deg Trident X3 Polyethylene - [id number] Implanted:Qty: 1 on 05/04/2024 by Kulwant Garrett MD at [facility] Left: Acetabulum [employer] 05/26/2028 [id number] / / [id number] Insurance MEDICARE A Member Subscriber Plan / Payer (Ef fective 2018-Present) Name:Mildred Terry Member ID:[id number] Relation to Subscriber:Self Name:Mildred Terry Subscriber ID:[id number] Payer ID:[id number] Group ID:Not on file Type:Medicare Address: [facility] Hello Agent [facility] [id number] [facility] [place] [place] [phone] [facility] MEDICARE A [facility] MEDICARE A [facility] MEDICARE A [facility] MEDICARE A [facility] Address: [facility] [id number] [place] [address] MEDICARE A [facility] MEDICARE A [facility] MEDICARE A [facility] MEDICARE A [facility] Advance Directives For more information, please contact: [phone] (9AM - 5PM [facility], Friday-Friday) * Full Code (Latest Code Status on File) Date Activated Date Inactivated Comments 05/04/2024 8:55 AM Question Answer Comments Code Status Confirmed With: Other (specify below ) Code Discussion Comments: presumed Care Teams Powerhouse Tender Relationship Specialty Start Date End Date Razia Rosales MD [address] [place] [address] PCP - General Internal Medicine 12/06/21 Vincent Garcia MD [address] [place] [phone] Cardiology 04/23/24 Additional Source Comments The information contained in this document represents components of the legal health record. It is not the complete legal health record.[facility]
--- OUTSIDE RECORDS SUMMARY | 2025-08-11 15:56 | XMS_ITS | Encounter Summary ---
Author Organization [facility] Address [address] [place] [address] Phone Care Team Providers Care Director Project Management Name Role Phone Razia Rosales MD Primary Care Provid er Vincent Garcia MD Unavailable [phone] Encounter Details Date Type Department Care Team (Late st Contact Info) Description 05/04/2024 Procedure Pass [facility] PERIOPERATIVE DEPT [address] [place] [id number] Social History Tobacco Use Types Packs/Day Years Used Date Smoking Tobacco: Never Smokeless Tobacco: Never Alcohol Use Standard Drinks/Week Comments Never 0 [...] Orientation Straight 12/06/2021 12 :58 PM EST documented as of this encounter Plan of Treatment Not on file documented as of this encounter Visit Diagnoses Not on filedocumented in this encounter Care Teams Director Project Management Relationship Specialty Start Date End Date Razia Rosales MD [address] [place] [address] PCP - General Internal Medicine 12/06/21 Vincent Garcia MD [address] [place] [address] Cardiology 04/23/24 documented as of this encounter Additional Source Comments The information contained in this document represents components of the legal health record. It is not the complete legal health record.[facility]
--- OUTSIDE RECORDS SUMMARY | 2025-08-11 15:56 | XMS_ITS | Encounter Summary ---
Author Organization [facility] Address [address] [place] [address] Phone Care Team Providers Care Ichthyologist Name Role Phone Razia Rosalse MD Primary Care Provid er Vincent Garcia MD Unavailable [phone] Encounter Details Date Type Department Care Team (Late st Contact Info) Description 02/12/2022 Procedure Pass [facility] PERIOPERATIVE DEPT [address] [place] [phone] Social History Tobacco Use Types Packs/Day Years Used Date Smoking Tobacco: Never Smokeless Tobacco: Never Alcohol Use Standard Drinks/Week Comments Never 0 (1 standard drink = 0.6 oz pur e alcohol) Comments No Sex and Gender Information Value [...] on filedocumented in this encounter Care Teams Ichthyologist Relationship Specialty Start Date End Date Razia Rosales MD [address] [place] [address] PCP - General Internal Medicine 12/06/21 Vincent Garcia MD [address] [place] [address] [place] [address], [place] [address] Cardiology 04/23/24 documented as of this encounter Additional Source Comments The information contained in this document represents components of the legal health record. It is not the complete legal health record.[facility]
--- OUTSIDE RECORDS SUMMARY | 2025-08-11 15:56 | XMS_ITS | Encounter Summary ---
Author Organization [facility] Address [email or web address] [place] [address] Phone Care Team Providers Care Timber Grader Name Role Phone Razia Rosales MD Primary Care Provid er Vincent Garcia MD Unavailable [phone] Encounter Details Date Type Department Care Team (Late st Contact Info) Description 01/28/2022 Prep for Surgery Kulwant Garrett MD 1 [facility] [address] [place] [address] Order Mode, Director Of Investigations 2 [place] [address] Social History Tobacco Use Types Packs/Day Years Used Date Smoking Tobacco: Never Assessed Comments Unknown Sex and Gender Information Value Date Recorded Sex Assigned at Female 12/06/2021 12:58 PM EST Legal Sex Female 12:57 PM EST Gender Identity Female 12/06/2021 12:58 PM EST Sexual Orientation Straight 12/06/2021 12 :58 PM EST documented as of this encounter Plan of Treatment Not on file documented as of this encounter Visit Diagnoses Not on filedocumented in this encounter Care Teams Timber Grader Relationship Specialty Start Date End Date Razia Rosales MD [address] [place] [address] PCP - General Internal Medicine 12/06/21 Vincent Garcia MD [address] [place] [address] [place] [address] Cardiology 04/23/24 documented as of this encounter Additional Source Comments The information contained in this document represents components of the legal health record. It is not the complete legal health record.[facility]
--- OUTSIDE RECORDS SUMMARY | 2025-08-11 15:56 | XMS_ITS | Clinical Summary ---
Author Organization [facility] Address [address] [place] [address] Care Team Providers Care Sugar Reprocess Operator Head Name Role Phone Unavailable Primary Care Provider [...] 1 - PCV) 2018 Influenza Vaccine (#1) 2025 RSV Adult > 60+ Yrs or Pregn ant (1 - 1-dose 75+ series) 02/01/2028 Hepatitis B Vaccines Aged Out No long er eligible based on patient's age to complete this topic RSV Ped < 20 months Aged Out No longe r eligible based on patient's age to complete this topic
--- OUTSIDE RECORDS SUMMARY | 2025-08-11 15:56 | XMS_ITS | Encounter Summary ---
Author Organization [facility] Address [address] [place] [address] Phone Care Team Providers Care Buttonhole Tacker Name Role Phone Razia Rosales MD Primary Care Provid er Vincent Garcia MD Unavailable [phone] Encounter Details Date Type Department Care Team (Latest Contact Info) Description 12/06/2021 Transcribe Orders Virtual Department [address] [place] [address] Arnold [place], [place] [address] [place] [address] Right hip pain (Primary Dx) Social History Tobacco Use Types Packs/Day Years Used Date Smoking Tobacco: Never Assessed Comments Unknown Sex and Gender Information Value Date Recorded Sex Assigned at Female 12/06/2021 12:58 PM EST Legal Sex Female 12:57 PM EST Gender Identity Female 12/06/2021 12:58 PM EST Sexual Orientation Straight 12/06/2021 12 :58 PM EST documented as of this encounter Plan of Treatment Scheduled Orders Name Type Priority Associated Diagnoses Orde r Schedule XR Hip (Right) Imaging Routine Right hip pain Expected: 12/06/2021, Expires: 12/06/2022 documented as of this encounter Visit Diagnoses Diagnosis Right hip pain- Primary Pain in joint, pelvic region and thigh documented in this encounter Care Teams Buttonhole Tacker Relationship Specialty Start Date End Date Razia Rosales MD [address] [place] [address] PCP - General Internal Medicine 12/06/21 Vincent Garcia MD [address] [place] [address] Cardiology 04/23/24 documented as of this encounter Additional Source Comments The information contained in this document represents components of the legal health record. It is not the complete legal health record.[facility]
--- OUTSIDE RECORDS SUMMARY | 2025-08-11 15:56 | XMS_ITS | Continuity of Care Document ---
Author Organization [facility] Address [address] [place] [address] [address] [place], [place] Phone [phone] Care Team Providers Care Patroller Name Role Phone NIMCO PIZARRO M.D. Care Team Information Rec eiver Unavailable Social History Type Date Description Comments Sex Female Sex Unknown
--- OUTSIDE RECORDS SUMMARY | 2025-08-11 15:56 | XMS_ITS | Encounter Summary ---
Author Organization [facility] Address [address] [place] [address] Phone Care Team Providers Care Paint Line Supervisor Name Role Phone Razia Rosales MD Primary Care Provid er Vincent Garcia MD Unavailable [phone] Encounter Details Date Type Department Care Team (Late st Contact Info) Description 04/23/2024 Prep for Surgery Kulwant Garrett MD 1 [facility] [address] [place] [address] Order Mode, Geography Teacher 2 [place] [address] Social History Tobacco Use Types Packs/Day Years [...] with a working camera? Not on file Comments No Sex and Gender Information Value [...] on filedocumented in this encounter Care Teams Paint Line Supervisor Relationship Specialty Start Date End Date Razia Rosales MD [address] [place] [address] PCP - General Internal Medicine 12/06/21 Vincent Garcia MD [address] [place] [address] Cardiology 04/23/24 documented as of this encounter Additional Source Comments The information contained in this document represents components of the legal health record. It is not the complete legal health record.[facility]
== END 2025-08-11 14:19 | disposition home or self-care (01) ==
LOC: HO.MAMMO 14:18
PROVIDERS: Visit Provider Internal Medicine
DX: Z12.31 Encounter for screening mammogram for malignant neoplasm of breast (principal)
CPT/HCPCS: 77063; 77067

== ENCOUNTER 2025-10-14 07:28 | Outpatient (AMB) | payer OTHER, SELFPAY ==
--- OUTSIDE RECORDS SUMMARY | 2025-10-14 07:31 | XMS_ITS | Encounter Summary ---
Author Organization [facility] Address [address] [place] [address] Phone Care Team Providers Care Scientific Process Operator Name Role Phone Razia Rosales MD Primary Care Provid er Vincent Garcia MD Unavailable [phone] Encounter Details Date Type Department Care Team (Late st Contact Info) Description 05/04/2024 Procedure Pass [facility] PERIOPERATIVE DEPT [address] [place] [phone] Social History Tobacco Use Types Packs/Day Years [...] on filedocumented in this encounter Care Teams Scientific Process Operator Relationship Specialty Start Date End Date Razia Rosales MD [address] [place] [address] PCP - General Internal Medicine 12/06/21 Vincent Garcia MD [address] [place] [address] Cardiology 04/23/24 documented as of this encounter Additional Source Comments The information contained in this document represents components of the legal health record. It is not the complete legal health record.[facility]
--- OUTSIDE RECORDS SUMMARY | 2025-10-14 07:31 | XMS_ITS | Encounter Summary ---
Author Organization [facility] Address [address] [place] [address] Phone Care Team Providers Care Tooth Cutter Clutch Name Role Phone Razia Rosales MD Primary Care Provid er Vincent Garcia MD Unavailable [phone] Encounter Details Date Type Department Care Team (Late st Contact Info) Description 01/28/2022 Prep for Surgery Kulwant Garrett MD 1 [facility] [address] [place] [address] Order Mode, Restaurant Operations Manager 2 [place] [address] Social History Tobacco Use Types Packs/Day Years [...] on filedocumented in this encounter Care Teams Tooth Cutter Clutch Relationship Specialty Start Date End Date Razia Rosales MD 5 [place] [address] PCP - General Internal Medicine 12/06/21 Vincent Garcia MD [address] [place] [address] [place] [address] Cardiology 04/23/24 documented as of this encounter Additional Source Comments The information contained in this document represents components of the legal health record. It is not the complete legal health record.[facility]
--- OUTSIDE RECORDS SUMMARY | 2025-10-14 07:31 | XMS_ITS | Continuity of Care Document ---
Author Organization [facility] Address [address] [facility] [address] [place], [place] Phone [phone] Care Team Providers Care Roof Panel Hanger Name Role Phone Shell Murphy M.D. Primary Care Physician Un available Problems Active Problems Provider Date Osteoporosis Shell Murphy M.D. Onset: 1 Social History Type Date Description Comments Sex Female Sex Unknown Allergies and adverse reactions Description No Known Drug Allergies Medications Active Medications SIG Qnty Indications Ordering Provider Date Vit D Unknown Vit B Complex Unknown Fatty 15 an omega(learned in [place]ola talk as an aa) Unknown Papaya Conyngham Extract for plt health Unkno wn Lysine to increase Ca+ absorption Unknown
--- OUTSIDE RECORDS SUMMARY | 2025-10-14 07:32 | XMS_ITS | Clinical Summary ---
Author Organization [facility] Address [address] [place] [address] Phone Care Team Providers Care Promotions Assistant Name Role Phone Razia Rosales MD Primary Care Provid er Vincent Garcia MD Unavailable [phone] Allergies Active Allergy Reactions Criticality Noted Date [...] this topic Medical Devices Implanted Type Area Yarn Bleaching Machine Operator Device Identifier Shelf Expiration Date Model / Serial / Lot Hip Stem [id number] Size 4 127deg Femoral Accolade Titanium Hydroxyapatite Coating - [id number] Implanted:Qty: 1 on 05/04/2024 by Kulwant Garrett MD at [facility] NODATA Left: Femur [employer] 02/14/2029 [id number] / / [id number] Hip 36mm 2.5 Implant Hd Alumina Ceramic Modular Delta Biolox Minus 04 - [id number] Implanted:Qty: 1 on 05/04/2024 by Kulwant Garrett MD at [facility] STANDARD Left: Acetabulum [employer] 01/18/2029 [id number] / / [id number] Screw Hip 6.5x20mm G7 Low Profile Dome 16a - [id number] Implanted:Qty: 1 on 02/12/2022 by Kulwant Garrett MD at [facility] Right: Hip [employer] 03/29/2031 [id number] / / [id number] Screw Hip 6.5x20mm G7 Low Profile Dome 16a - [id number] Implanted:Qty: 1 on 02/12/2022 by Kulwant Garrett MD at [facility] Right: Hip [employer] 03/29/2031 [id number] / / [id number] Hip Liner 32mm C Acetabular Neutral G7 Vit E - [id number] Implanted:Qty: 1 on 02/12/2022 by Kulwant Garrett MD at [facility] Right: Hip [employer] 12/19/2026 [id number] / / [id number] Screw Hip 6.5x20mm G7 Low Profile Dome 16a - [id number] Implanted:Qty: 1 on 02/12/2022 by Kulwant Garrett MD at [facility] Right: Hip [employer] 05/30/2031 [id number] / / [id number] Hip Shell 48mm Acetabular Multihole G7 - [id number] Implanted:Qty: 1 on 02/12/2022 by Kulwant Garrett MD at [facility] Right: Hip [employer] 09/04/2030 [id number] / / [id number] Biolox Delta Modular Ceramic Head 32mm -3mm Neck Implanted:Qty: 1 on 02/12/2022 by Kulwant Garrett MD at [facility] Right: Acetabulum MARJAN 08/21/2031 / / [id number] Hip Stem 8 8.0x34.3 136mm 1 Size T[place]loc Pps Coated Complete Full Profile Standard Offset Type - [id number] Implanted:Qty: 1 on 02/12/2022 by Kulwant Garrett MD at [facility] Right: Hip [employer] 05/10/2024 [id number] / / [id number] Screw Bone 6.5x20mm Low Profile - [id number] Implanted:Qty: 1 on 05/04/2024 by Kulwant Garrett MD at [facility] Left: Acetabulum [employer] 01/12/2029 [id number] / / [id number] Screw Bone 6.5x25mm Low Profile - [id number] Implanted:Qty: 1 on 05/04/2024 by Kulwant Garrett MD at [facility] Left: Acetabulum [employer] 02/09/2029 [id number] / / [id number] Hip Acetabular 50d Shell Trident I Clusterhole 3d Surface Tritanium - [id number] Implanted:Qty: 1 on 05/04/2024 by Kulwant Garrett MD at [facility] Left: Acetabulum [employer] 03/06/2029 [id number] / / [id number] Acetabular Insert 3.9x36mm 0deg Trident X3 Polyethylene - [id number] Implanted:Qty: 1 on 05/04/2024 by Kulwant Garrett MD at [facility] Left: Acetabulum [employer] 05/26/2028 723-00-36D / / [id number] Insurance MEDICARE A Member Subscriber Plan / Payer (Ef fective 2018-Present) Name:Mildred Terry Member ID:[id number] Relation to Subscriber:Self Name:Mildred Terry Subscriber ID:[id number] Payer ID:[id number] Group ID:Not on file Type:Medicare Address: [facility] [employer] [facility] [address] [place] [phone] [facility] MED[facility] A [facility] MEDICARE A [facility] MEDICARE A [facility] [place] [place] Address: [facility] [id number] [place] [address] MEDICARE A [facility] MEDICARE A [facility] MEDICARE A [facility] MEDICARE A [facility] Advance Directives For more information, please contact: [phone] (9AM - 5PM [facility], Friday-Friday) * Full Code (Latest Code Status on File) Date Activated Date Inactivated Comments 05/04/2024 8:55 AM Question Answer Comments Code Status Confirmed With: Other (specify below ) Code Discussion Comments: presumed Care Teams Promotions Assistant Relationship Specialty Start Date End Date Razia Rosales MD [address] [place] [address] PCP - General Internal Medicine 12/06/21 Vincent Garcia MD [address] [place] [address] Cardiology 04/23/24 Additional Source Comments The information contained in this document represents components of the legal health record. It is not the complete legal health record.[facility]
--- OUTSIDE RECORDS SUMMARY | 2025-10-14 07:32 | XMS_ITS | Encounter Summary ---
Author Organization [facility] Address [address] [place] [address] Phone Care Team Providers Care Agricultural Produce Washer Name Role Phone Razia Rosales MD Primary Care Provid er Vincent Garcia MD Unavailable [phone] Encounter Details Date Type Department Care Team (Late st Contact Info) Description 04/23/2024 Prep for Surgery Kulwant Garrett MD 1 [facility] [address] [place] [address] Order Mode, Carpentry Professional 2 [place] [address] Social History Tobacco Use Types Packs/Day Years [...] on filedocumented in this encounter Care Teams Agricultural Produce Washer Relationship Specialty Start Date End Date Razia Rosales MD [address] [place] [address] PCP - General Internal Medicine 12/06/21 Vincent Garcia MD [address] [place] [address] Cardiology 04/23/24 documented as of this encounter Additional Source Comments The information contained in this document represents components of the legal health record. It is not the complete legal health record.[facility]
--- OUTSIDE RECORDS SUMMARY | 2025-10-14 07:32 | XMS_ITS | Clinical Summary ---
Author Organization [facility] Prior to 04/09/[address] [place] [address] Care Team Providers Care Hardboard Supervisor Name Role Phone Unavailable Primary Care Provider [...]
--- OUTSIDE RECORDS SUMMARY | 2025-10-14 07:32 | XMS_ITS | Encounter Summary ---
Author Organization [facility] Address [address] [place] [address] Phone Care Team Providers Care Keyliner Name Role Phone Razia Rosales MD Primary Care Provid er Vincent Garcia MD Unavailable [phone] Encounter Details Date Type Department Care Team (Late st Contact Info) Description 02/12/2022 Procedure Pass [facility] PERIOPERATIVE DEPT [address] [place] [phone] Social History Tobacco Use Types Packs/Day Years [...] on filedocumented in this encounter Care Teams Keyliner Relationship Specialty Start Date End Date Razia Rosales MD [address] [place] [address] PCP - General Internal Medicine 12/06/21 Vincent Garcia MD [address] [place] [address] [place] [address], [place] [address] Cardiology 04/23/24 documented as of this encounter Additional Source Comments The information contained in this document represents components of the legal health record. It is not the complete legal health record.[facility]
--- OUTSIDE RECORDS SUMMARY | 2025-10-14 07:32 | XMS_ITS | Encounter Summary ---
Author Organization [facility] Address [address] [address] [place] [address] Phone Care Team Providers Care Nitrator Operator Name Role Phone Razia Rosales MD Primary Care Provid er Vincent Garcia MD Unavailable [phone] Encounter Details Date Type Department Care Team (Latest Contact Info) Description 12/06/2021 Transcribe Orders Virtual Department [address] [place] [address] Arnold Marte, [place] [address] [place] [address] Right hip pain (Primary Dx) Social History [...] thigh documented in this encounter Care Teams Nitrator Operator Relationship Specialty Start Date End Date Razia Rosales MD [address] [place] [address] PCP - General Internal Medicine 12/06/21 Vincent Garcia MD [address] [place] [address] Cardiology 04/23/24 documented as of this encounter Additional Source Comments The information contained in this document represents components of the legal health record. It is not the complete legal health record.[facility]
--- NOTE | 2025-10-14 07:37 | A.OFFVIS_ITS ---
Vital Signs 10/14/25 07:46 Height 5 ft 3 in Weight 104 lb 4.458 oz BMI 18.5 BP 132/80 Blood Pressure Location Lt brachial Position Sitting Pulse 58 Pulse Source Pulse Oximeter Pulse Oximetry (%) 99 Oxygen Delivery Method Room Air Intake Visit Reasons: Hand pain Intake Note: Patient presents for hand pain follow up. Cake Wringer Required: No Accompanied by: Self / Same As Patient Allergies gluten Allergy (Mild, Verified 10/14/25 07:44) Diarrhea lactose Allergy (Mild, Verified 10/14/25 07:44) Diarrhea HPI Comments Details: Patient is a 70-year-old female with polyarticular OA and osteoporosis here today for follow up Interval History: Patient last seen 09/23/24 with me - new patient visit - evaluation of low bone density - recommended bisphosphonates Since then - Patient went to endocrinology and was also offered bisphosphonates - wanted a second opinion and was again offered bisphosphonates - does not want to start bisphosphonate due to side effects Today - not on rheum meds - The patient's primary complaint is progressive difficulty fully opening her hands, which she reports is worsening. - She states this issue started in her right hand, and after compensating with her left, the left hand has now become more severely affected. 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 - Her daughter also has unspecified hand problems. - She also reports concerns about her neck, noting a limited range of motion, particularly when turning her head, which she feels as a strain while swimming. - She has a history of migraine headaches, which she has found are effectively prevented by regular swimming, specifically the backstroke; she notes that if she doesn't swim for several days, she feels the onset of headache pain. - The patient has a history of a total hip replacement. - Her mother had osteoarthritis in her hands. - She maintains an active lifestyle, going to the gym twice a week to lift weights, swim, bike, and use machines. Rheumatologic History: Initial history: Risk Factor Assessment: ? Age: 69 years ? Race: ? Menarche: 11 years - 50 years ? Family history including hip fracture: No known family history of osteoporosis ? Low calcium/vitamin-D intake: Vit D supplements. Doesn't take Ca supplements but tries to eat foods high in calcium ? Estrogen deficiency: None ? Sedentary lifestyle: Walks and is active ? Cigarette smoking: Never smoked ? Excessive alcohol: Socially ? Excessive caffeine: Does not drink coffee, occasional tea High-risk medication assessment: No high risk meds Current Rheumatology Medication(s): PFS Medical History Hyperparathyroidism Normocalcemic primary hyperparathyroidism Venous insufficiency Abdominal pain Screen for colon cancer Physical exam Osteopenia Postmenopausal Hip pain, right Leg edema Surgical History Status post hip replacement Family History Mother Vascular dementia Glaucoma Father Pancreatic cancer LBBB (left bundle branch block) Social History Housing: House Alcohol intake: current Alcohol intake frequency: holidays/special occasions only Alcohol type: wine Patient Tobacco Use Status: Never used Tobacco e-Cigarette/Vaping Use: Never Used Second Hand Smoke Exposure: No service: No Current occupational status: retired Cognitive needs: No Hearing needs: No Vision needs: Yes Review of Systems Narrative Review of Systems Constitutional: Denies fever, chills, weight loss ENT: Denies vision changes, eye pain or eye redness, dental caries, dry mouth GI: Denies nausea, vomiting, diarrhea, abdominal pain, change in BM Pulm: Denies SOB, ANTONIO, hemoptysis, wheezing Cards: Denies chest pain, palpitations Skin: Denies Raynaud's, rash, nail changes, photosensitivity, [employer]WE[employer]ER: Denies headaches, weakness, paresthesias, recurrent falls MSK: as per HPI All other systems reviewed and are unremarkable except noted above Physical Exam Exam Exam: Vital signs reviewed Physical Examination CONSTITUITIONAL Patient alert and cooperative. Well appearing and in no apparent painful distress MSK Neck: Limited active range of motion with cervical rotation. Hands * Right Hand: Able to make a fist. No swelling or tenderness to palpation of the MCPs, PIPs or DIPs. Fibrous tendon noted to the 3rd digit with TTP over the A1 cyn * Left Hand: Able to make a fist. No swelling or tenderness to palpation of the MCPs, PIPs or DIPs. Fibrous tendon noted to the 3rd digit with TTP over the A1 cyn * Herbedens nodes noted bilaterally * Bilateral squarring of the 1st CMC * No trigger fingers noted Wrists * Right Wrist: Full ROM to flexion and extension. No swelling or TTP * Left Wrist: Full ROM to flexion and extension. No swelling or TTP Elbows * Right Elbow: Full ROM. No swelling or TTP. No TTP of the medial epicondyle. No TTP of the lateral epicondyle * Left Elbow: Full ROM. No swelling or TTP. No TTP of the medial epicondyle. No TTP of the lateral epicondyle Shoulders * Right shoulder: No swelling noted. No TTP of the AC joint. No TTP of the subacromial bursa. No TTP of the posterior shoulder * Left shoulder: No swelling noted. No TTP of the AC joint. No TTP of the subacromial bursa. No TTP of the posterior shoulder Knees * Right knee: No swelling noted. No TTP of the knee joint line. No TTP of pes anserine bursa * Left knee: No swelling noted. No TTP of the knee joint line. No TTP of pes anserine bursa. * Palpable crepitus is present bilaterally, more pronounced in the left knee than the right. Ankles * Right ankle: Good ankle dorsiflexion and plantar flexion. No swelling. No TTP of the ankle joint * Left ankle: Good ankle dorsiflexion and plantar flexion. No swelling. No TTP of the ankle joint Feet * Right foot: Negative squeeze test * Left foot: Negative squeeze test Tender points? * No tenderness to palpation of the bilateral trapezius, supraspinatus, anterior costochondral junctions, bilateral suboccipital muscle insertions SKIN No rashes Vital Signs: Last Vital Signs Pulse 58 10/14/25 07:46 BP 132/80 10/14/25 07:46 Pulse Ox 99 10/14/25 07:46 Oxygen Delivery Method Room Air 10/14/25 07:46 BMI result Body Mass Index 18.5 Results Reviewed Results Reviewed: DEXA 07/2024 FINDINGS: AP SPINE L1-L4: Current: BMD 0.930 g/cm2, Z-score 0.1, T-score -2.1, osteopenia, 3.7% increase from previous, 4.9% decrease from baseline (<5% change is not significant). Prior: BMD 0.897 g/cm2. Baseline: BMD 0.978 g/cm2. LEFT FOREARM RADIUS 33%: BMD 0.575 g/cm2, Z-score -1.5, T-score -3.4, osteoporosis. Assessment & Plan Assessment & Plan (1) Polyarticular osteoarthritis: Code(s): M15.9 - Polyosteoarthritis, unspecified Plan: #Polyarticular OA Patient is a 70-year-old female here today for evaluation of multiple joint complaints The patient's hand and neck symptoms are attributed to osteoarthritis, which is a progressive condition. The physical exam findings of squaring of the first CMC joints, crepitus, and limited range of motion support this diagnosis. The hand symptoms are exacerbated by associated tendinopathy and fibrosis. The plan includes ordering X-rays of the hands and neck to confirm the diagnosis. A referral will be placed for occupational therapy for her hands. Additionally, she will be provided with a printout of daily neck exercises to supplement her swimming routine. Management options discussed include NSAIDs like meloxicam or Celebrex for pain, and the potential for a hand surgery referral in the future if symptoms worsen. Plan - XRs bilateral hands and neck with flex/ext - Referral to OT for hand therapy - Consider NSAIDs in the future - Hand surgery in the future if worsening flexor tendinosis (2) Osteoporosis: Code(s): M81.0 - Age-related osteoporosis without current pathological fracture Category: Medical Qualifiers: Osteoporosis type: localized Presence of current pathological fracture: without current pathological fracture Qualified Code(s): M81.6 - Localized osteoporosis [[place]] Plan: #Osteoporosis The patient has a known diagnosis of osteoporosis and expressed hesitation about starting alendronate due to concerns over side effects. It was explained that all medications in the bisphosphonate class have a similar risk profile, including the risk of osteonecrosis of the jaw, due to their shared mechanism of action. Management of her osteoporosis will be deferred to her bath attendant, Dr. Saelh. Plan I educated the patient that her symptoms in her hands and neck are due to osteoarthritis, which is separate from her osteoporosis. I explained that osteoarthritis is a progressive condition involving joint deformity, which then leads to secondary issues with muscles and tendons, such as the fibrosis in her hands and muscle tension causing her headaches. I informed her that while exercises can strengthen muscles and improve range of motion, they will not stop the progression of the underlying joint disease. For management, I recommended she proceed with occupational therapy for her hands and provided her with specific neck exercises to do daily. We discussed that NSAIDs could be used for pain and that a referral to hand surgery is a potential option in the future. Regarding her osteoporosis, I clarified that the risks she is concerned about are common to the entire class of medications and deferred her treatment decisions to her bath attendant, Dr. Saleh. I placed orders for X-rays of her hands and neck. I spent 40 minutes reviewing the record and labs, taking a history, examining the patient, discussing the treatment plan, answering questions and explaining findings, ordering diagnostic work up and documenting in the medical record Orders: Orders XR cervical spine 4V Today M19.90 - Unspecified osteoarthritis, unspecified site XR hand LT min 3V Today M19.90 - Unspecified osteoarthritis, unspecified site XR hand RT min 3V Today M19.90 - Unspecified osteoarthritis, unspecified site OT Evaluation and Treatment Today M19.041 - Primary osteoarthritis, right hand, M19.042 - Primary osteoarthritis, left hand XR cervical spine w flex/ext Today M19.90 - Unspecified osteoarthritis, unspecified site Coding Level of Care Code Est Pt Level 5 (62849) Complex visit Add On G2211 Diagnoses Polyarticular osteoarthritis M15.9 Localized osteoporosis without current pathological fracture M81.6 Osteoporosis type: localized Presence of current pathological fracture: without current pathological fracture
[2025-10-14 07:46] VITALS: BP 132/80; PULSE 58; O2SAT 99; BMI 18.5
== END 2025-10-14 08:22 | disposition home or self-care (01) ==
LOC: HO.RHES 07:29
PROVIDERS: PCP Internal Medicine; Visit Provider Student in an Organized Health Care Education/Training Program
DX: M81.6 Localized osteoporosis [Lequesne] (principal); M15.9 Polyosteoarthritis, unspecified
CPT/HCPCS: 99215; G2211